=== PATIENT | male | born 1965 | race Caucasian/White ===

== ENCOUNTER 2020-01-23 17:36 | Emergency (ER) | payer BC ==
[~2020-01-23] VITALS: Ht 180.3 cm; Wt 84.1 kg
[2020-01-23] MEDS ORDERED: LIDOcaine 1% W/epiNEPHrine 1:200,000 10ml vial IJ ONE (17:55)
[2020-01-23] MEDS ORDERED: CEPH500C2 PO (19:16)
[2020-01-23] MEDS ORDERED: cephalexin 250 MG/5 ML oral suspension PO STA (19:25)
[2020-01-23] MEDS ORDERED: cephalexin 250mg capsule PO ONE (19:35)
[2020-01-23 19:42] VITALS: BP 135/88
== END 2020-01-23 19:43 | disposition home or self-care (01) ==
LOC: ER 17:36
DX: S68.021A Partial traumatic metacarpophalangeal amputation of right thumb, initial encounter (principal); Z79.2 Long term (current) use of antibiotics; W27.8XXA Contact with other nonpowered hand tool, initial encounter; Y93.89 Activity, other specified; Y92.89 Other specified places as the place of occurrence of the external cause; Y99.8 Other external cause status
CPT/HCPCS: 64450; 73140; 99284

== ENCOUNTER 2021-02-04 08:34 | Inpatient (IN) | payer BC ==
[~2021-02-04] VITALS: Ht 180.3 cm; Wt 190.0 kg
[2021-02-04] MEDS ORDERED: morphine 4 MG/ML inj SYRINge IV ONE (09:15)
[2021-02-04] MEDS ORDERED: ondansetron/PF 4mg/2ml inj IV ONE ×2 (09:15→11:00)
[2021-02-04 09:50] LABS: CLARITY,URINE CLEAR (Clear); COLOR,URINE YELLOW (Yellow); GLUCOSE, URINE NEGATIVE (Neg); KETONES,URINE NEGATIVE (Neg); LEUKOCYTE ESTERASE ,URINE NEGATIVE (Neg); NITRITES, URINE NEGATIVE (Neg); OCCULT BLOOD,URINE NEGATIVE (Neg); PH,URINE 5.5 (4.8-8.0); PROTEIN,URINE NEGATIVE (Neg)
[2021-02-04 09:58] LABS: UA COLLECTION TYPE CLN CATCH MIDSTREAM
[2021-02-04 10:05] LABS: ALANINE AMINOTRANSFERASE 256 U/L (12-78); ALBUMIN 4.3 G/DL (3.4-5.0); ALBUMIN/GLOBULIN RATIO 1.3 (1.1-1.5); ALKALINE PHOSPHATASE 96 IU/L (46-116); ANION GAP 8 (8-16); ASPARTATE AMINO TRANSFERASE 225 U/L (10-37); BILIRUBIN,TOTAL 1.4 MG/DL (0.1-1.0); BLOOD UREA NITROGEN 20 MG/DL (7-18); CALCIUM 8.8 MG/DL (8.5-10.1); CHLORIDE 107 MMOL/L (99-107); CREATININE 1.33 MG/DL (0.60-1.10); GLUCOSE 115 MG/DL (70-104); POTASSIUM 4.3 MMOL/L (3.5-5.1); SODIUM 143 MMOL/L (135-145); TOTAL CARBON DIOXIDE 28.1 MMOL/L (24-32); TOTAL PROTEIN 7.6 G/DL (6.4-8.2); eGFR 56 ML/MIN
[2021-02-04 10:09] LABS: BASOPHILS % (AUTO) 0.2 % (0-1); EOSINOPHILS % (AUTO) 0.2 % (0-6); HEMOGLOBIN 16.4 g/dl (14.0-17.9); LYMPHOCYTES # (AUTO) 1.1 X10'3 (1.1-4.8); LYMPHOCYTES % (AUTO) 6.7 % (21-51); MEAN CORPUSCULAR HEMOGLOBIN 30.7 PG (27.0-31.0); MEAN CORPUSCULAR HGB CONC 33.5 g/dL (33.0-36.5); MEAN CORPUSCULAR VOLUME 91.5 FL (78-98); MEAN PLATELET VOLUME 8.1 FL (7.4-10.4); MONOCYTES # (AUTO) 1.2 X10'3 (0-0.9); MONOCYTES % (AUTO) 7.5 % (2-12); NEUTROPHILS # (AUTO) 14.1 X10'3 (1.8-7.7); NEUTROPHILS % (AUTO) 85.4 % (42-75); PLATELET COUNT 197 X10'3 (140-440); RED BLOOD COUNT 5.35 X10'6 (4.70-6.10); TROPONIN I < 0.04 NG/ML (0.0-0.05); WHITE BLOOD COUNT 16.5 X10'3 (4.5-11.0)
[2021-02-04 10:22] LABS: LIPASE > 30000 U/L (73-393)
[2021-02-04] MEDS ORDERED: normal saline 1000ML IV soln IV ONE (10:30)
[2021-02-04] MEDS ORDERED: piperacillin/tazo 3.375gm/50ml 50 ML IV ONE (10:30)
[2021-02-04 10:57] LABS: CHOL/HDL RATIO 4.1 (0.00-4.99); CHOLESTEROL 217 MG/DL (0-200); HDL CHOLESTEROL 53 MG/DL (35-60); LDL CHOLESTEROL 127 MG/DL (50-100); TRIGLYCERIDES 119 MG/DL (20-135)
[2021-02-04 10:58] LABS: ETHANOL < 0.010 GM/DL (0.0-0.010)
[2021-02-04] MEDS ORDERED: NO HOME MEDS (11:02)
[2021-02-04] MEDS ORDERED: acetaminophen 325mg tablet PO PRN (11:10)
[2021-02-04] MEDS ORDERED: ondansetron/PF 4mg/2ml inj IV PRN (11:10)
[2021-02-04] MEDS ORDERED: mag hydrox/Alum hydrox/simeth 30ml oral suspension PO PRN (11:10)
[2021-02-04] MEDS ORDERED: magnesium hydroxide 30ml (MOM) UD suspension PO PRN (11:10)
--- NOTE | 2021-02-04 11:21 | NUR ---
called pharmacy about ordered Zosyn because it is not showing up assigned for the pt at all in the [facility]. she states she will prepare the med and send it to us in a few minutes.
[2021-02-04] MEDS: normal saline 1000ml 1,000 ML IV SCH ×3 (12:44→23:04)
[2021-02-04 16:19] VITALS: BP 126/82
[2021-02-04] MEDS ORDERED: pantoprazole 40 MG vial IV ONE (17:05)
[2021-02-04 18:00] VITALS: BP 133/82
--- NOTE | 2021-02-04 19:09 | NUR ---
Problems reprioritized. Patient report given, questions answered & plan of care reviewed with Hilda HUSTON.
[2021-02-04] MEDS: morphine 2 MG/ML inj. syringe IV PRN (20:36)
[2021-02-04 22:00] VITALS: BP 129/77
[2021-02-05] MEDS: normal saline 1000ml 1,000 ML IV SCH ×4 (04:29→20:11)
[2021-02-05] MEDS: morphine 2 MG/ML inj. syringe IV PRN ×3 (04:29→20:11)
[2021-02-05 06:00] VITALS: BP 123/71
--- NOTE | 2021-02-05 06:14 | NUR ---
REPORT TO ADRIANE HUSTON
--- NOTE | 2021-02-05 07:02 | NUR ---
Patient in room ORTHO 4024B. I have received report from ROBEL JONES and had the opportunity to ask questions and assume patient care.
[2021-02-05 08:23] LABS: BASOPHILS % (AUTO) 0.1 % (0-1); EOSINOPHILS % (AUTO) 0 % (0-6); HEMATOCRIT 42.3 % (42.0-52.0); HEMOGLOBIN 14.1 g/dl (14.0-17.9); LYMPHOCYTES # (AUTO) 0.8 X10'3 (1.1-4.8); LYMPHOCYTES % (AUTO) 6.4 % (21-51); MEAN CORPUSCULAR HEMOGLOBIN 30.9 PG (27.0-31.0); MEAN CORPUSCULAR HGB CONC 33.5 g/dL (33.0-36.5); MEAN CORPUSCULAR VOLUME 92.4 FL (78-98); MEAN PLATELET VOLUME 8.3 FL (7.4-10.4); MONOCYTES # (AUTO) 0.6 X10'3 (0-0.9); MONOCYTES % (AUTO) 4.7 % (2-12); NEUTROPHILS # (AUTO) 10.9 X10'3 (1.8-7.7); NEUTROPHILS % (AUTO) 88.8 % (42-75); PLATELET COUNT 148 X10'3 (140-440); RED BLOOD COUNT 4.58 X10'6 (4.70-6.10); RED CELL DISTRIBUTION WIDTH 13.4 % (11.5-14.5); WHITE BLOOD COUNT 12.3 X10'3 (4.5-11.0)
[2021-02-05 08:25] LABS: ALANINE AMINOTRANSFERASE 180 U/L (12-78); ALBUMIN 2.9 G/DL (3.4-5.0); ALKALINE PHOSPHATASE 59 IU/L (46-116); ANION GAP 8 (8-16); ASPARTATE AMINO TRANSFERASE 84 U/L (10-37); BILIRUBIN,TOTAL 1.2 MG/DL (0.1-1.0); BLOOD UREA NITROGEN 14 MG/DL (7-18); BUN/CREATININE RATIO 13.1 (5.4-32.0); CALCIUM 7.2 MG/DL (8.5-10.1); CHLORIDE 111 MMOL/L (99-107); CREATININE 1.07 MG/DL (0.60-1.10); GLUCOSE 98 MG/DL (70-104); POTASSIUM 3.9 MMOL/L (3.5-5.1); SODIUM 143 MMOL/L (135-145); TOTAL CARBON DIOXIDE 23.9 MMOL/L (24-32); TOTAL PROTEIN 5.8 G/DL (6.4-8.2); eGFR 71 ML/MIN
[2021-02-05 08:39] LABS: LIPASE 6393 U/L (73-393)
[2021-02-05 10:00] VITALS: BP 127/76
[2021-02-05] MEDS: pantoprazole 40 MG vial IV SCH (10:20)
[2021-02-05] MEDS: enoxaparin 40mg/0.4ml syringe SUBCUT SCH (10:20)
--- NOTE | 2021-02-05 18:44 | NUR ---
Problems reprioritized. Patient report given, questions answered & plan of care reviewed with ROBEL TIWARI.
[2021-02-05 22:00] VITALS: BP_SYST 125; BP_SYST 136; BP_DIAS 72; BP_DIAS 82
[2021-02-06] MEDS: morphine 2 MG/ML inj. syringe IV PRN ×2 (02:42→21:05)
--- NOTE | 2021-02-06 02:43 | NUR ---
ADM 2 MG MORPHINE IVP FOR ABD PAIN 02/25. WHEN I WENT TO SCAN THE MEDICATION AFTER DRAWING UP INTO THE SYRINGE TO ADMINSTER, IT DROPPED ONTO THE FLOOR AND BROKE. ADM THE MEDICATION BY USING ADM BUTTON.
[2021-02-06 06:00] VITALS: BP 130/78
[2021-02-06 06:26] LABS: ALANINE AMINOTRANSFERASE 115 U/L (12-78); ALBUMIN 2.6 G/DL (3.4-5.0); ALBUMIN/GLOBULIN RATIO 0.8 (1.1-1.5); ALKALINE PHOSPHATASE 53 IU/L (46-116); ANION GAP 7 (8-16); ASPARTATE AMINO TRANSFERASE 37 U/L (10-37); BLOOD UREA NITROGEN 12 MG/DL (7-18); BUN/CREATININE RATIO 11.5 (5.4-32.0); CALCIUM 7.5 MG/DL (8.5-10.1); CHLORIDE 110 MMOL/L (99-107); CREATININE 1.04 MG/DL (0.60-1.10); GLUCOSE 91 MG/DL (70-104); LIPASE 1327 U/L (73-393); POTASSIUM 4.3 MMOL/L (3.5-5.1); SODIUM 143 MMOL/L (135-145); TOTAL CARBON DIOXIDE 26.4 MMOL/L (24-32); TOTAL PROTEIN 5.8 G/DL (6.4-8.2); eGFR 74 ML/MIN
[2021-02-06 06:38] LABS: BASOPHILS % (AUTO) 0.1 % (0-1); EOSINOPHILS % (AUTO) 0 % (0-6); HEMATOCRIT 39.5 % (42.0-52.0); HEMOGLOBIN 13.5 g/dl (14.0-17.9); MEAN CORPUSCULAR HEMOGLOBIN 31.5 PG (27.0-31.0); MEAN CORPUSCULAR HGB CONC 34.3 g/dL (33.0-36.5); MEAN CORPUSCULAR VOLUME 91.8 FL (78-98); MEAN PLATELET VOLUME 8.6 FL (7.4-10.4); MONOCYTES # (AUTO) 0.7 X10'3 (0-0.9); MONOCYTES % (AUTO) 5.9 % (2-12); NEUTROPHILS # (AUTO) 10.9 X10'3 (1.8-7.7); PLATELET COUNT 143 X10'3 (140-440); RED CELL DISTRIBUTION WIDTH 13.5 % (11.5-14.5); WHITE BLOOD COUNT 12.6 X10'3 (4.5-11.0)
--- NOTE | 2021-02-06 06:42 | NUR ---
Problems reprioritized. Patient report given, questions answered & plan of care reviewed with ROBEL FORREST.
--- NOTE | 2021-02-06 06:48 | NUR ---
Patient in room ORTHO 4024B. I have received report from ROBEL TIWARI and had the opportunity to ask questions and assume patient care.
[2021-02-06] MEDS: pantoprazole 40 MG vial IV SCH (07:05)
[2021-02-06] MEDS: enoxaparin 40mg/0.4ml syringe SUBCUT SCH (07:05)
[2021-02-06] MEDS: normal saline 1000ml 1,000 ML IV SCH ×5 (07:13→19:21)
[2021-02-06 10:00] VITALS: BP 146/84
[2021-02-06 18:00] VITALS: BP 141/84
--- NOTE | 2021-02-06 18:31 | NUR ---
Problems reprioritized. Patient report given, questions answered & plan of care reviewed with ROBEL TIWARI.
[2021-02-06 22:00] VITALS: BP 115/76
--- NOTE | 2021-02-06 22:00 | NUR ---
NO SURGERY IN THE MORNING AND NO NEED TO PREP FOR NOW. IF PT IS BETTER, MIGHT GO IN PM FOR THE DAY AFTER.
[2021-02-07] MEDS: normal saline 1000ml 1,000 ML IV SCH ×5 (00:05→20:51)
[2021-02-07 06:00] VITALS: BP 154/78
--- NOTE | 2021-02-07 06:37 | NUR ---
Problems reprioritized. Patient report given, questions answered & plan of care reviewed with ROBEL SCHNEIDER.
[2021-02-07] MEDS: enoxaparin 40mg/0.4ml syringe SUBCUT SCH (06:48)
[2021-02-07 07:10] LABS: BASOPHILS % (AUTO) 0.1 % (0-1); EOSINOPHILS % (AUTO) 0 % (0-6); HEMATOCRIT 39.5 % (42.0-52.0); HEMOGLOBIN 13.4 g/dl (14.0-17.9); LYMPHOCYTES # (AUTO) 0.8 X10'3 (1.1-4.8); LYMPHOCYTES % (AUTO) 6.2 % (21-51); MEAN CORPUSCULAR HEMOGLOBIN 30.9 PG (27.0-31.0); MEAN CORPUSCULAR HGB CONC 33.8 g/dL (33.0-36.5); MEAN CORPUSCULAR VOLUME 91.3 FL (78-98); MEAN PLATELET VOLUME 8.9 FL (7.4-10.4); MONOCYTES # (AUTO) 1.2 X10'3 (0-0.9); MONOCYTES % (AUTO) 8.9 % (2-12); NEUTROPHILS # (AUTO) 11.2 X10'3 (1.8-7.7); NEUTROPHILS % (AUTO) 84.8 % (42-75); PLATELET COUNT 164 X10'3 (140-440); RED BLOOD COUNT 4.33 X10'6 (4.70-6.10); RED CELL DISTRIBUTION WIDTH 13.1 % (11.5-14.5); WHITE BLOOD COUNT 13.2 X10'3 (4.5-11.0)
[2021-02-07 07:30] LABS: ALANINE AMINOTRANSFERASE 82 U/L (12-78); ALBUMIN 2.8 G/DL (3.4-5.0); ALBUMIN/GLOBULIN RATIO 0.8 (1.1-1.5); ALKALINE PHOSPHATASE 55 IU/L (46-116); ANION GAP 14 (8-16); ASPARTATE AMINO TRANSFERASE 23 U/L (10-37); BILIRUBIN,TOTAL 1.1 MG/DL (0.1-1.0); BLOOD UREA NITROGEN 14 MG/DL (7-18); BUN/CREATININE RATIO 13.1 (5.4-32.0); CALCIUM 7.8 MG/DL (8.5-10.1); CHLORIDE 106 MMOL/L (99-107); CREATININE 1.07 MG/DL (0.60-1.10); GLUCOSE 123 MG/DL (70-104); LIPASE 225 U/L (73-393); SODIUM 143 MMOL/L (135-145); TOTAL PROTEIN 6.5 G/DL (6.4-8.2); eGFR 71 ML/MIN
[2021-02-07] MEDS ORDERED: potassium Cl 40MEQ/1/2NS 520ml 520 ML IV PRN (07:40)
[2021-02-07] MEDS ORDERED: magnesium 2GM in 50ml NS 50 ML IV PRN (07:40)
[2021-02-07] MEDS ORDERED: potassium Cl 20 mEq SR tablet PO PRN (07:40)
[2021-02-07] MEDS ORDERED: magnesium Cl slow-release 64mg tablet PO PRN (07:40)
[2021-02-07] MEDS ORDERED: magnesium 4gm in 100ml NS 100 ML IV PRN (07:40)
[2021-02-07] MEDS: K and/or MAG REPLACEMENT MC SCH ×2 (08:00→21:03)
[2021-02-07 08:24] LABS: MAGNESIUM 2.2 MG/DL (1.5-2.4)
[2021-02-07] MEDS: potassium Cl 20 mEq SR tablet PO PRN ×2 (09:32→16:23)
[2021-02-07 10:15] VITALS: BP 132/75
--- NOTE | 2021-02-07 11:22 | NUR ---
New IV placed by ultrasound, patient was not able to get am protonix or fluids, will give now.
[2021-02-07] MEDS: pantoprazole 40 MG vial IV SCH (11:26)
--- NOTE | 2021-02-07 15:47 | NUR ---
Patient going for MRCP, will take off tele box while gone.
--- NOTE | 2021-02-07 17:13 | NUR ---
urine output somewhat decreased, monitoring, not retaining only 12ml in bladder earlier. Slightly more than 400ml out so far on day shift.
[2021-02-07 18:00] VITALS: BP 152/87
--- NOTE | 2021-02-07 18:26 | NUR ---
Report given to Becky HUSTON. All questions answered. Call out to Dr Cochran who was in surgery to ask about plan for potential surgery. NOC Rn will follow up. Pt up walking at times. No current pain, some complaints of bloating and acidic taste with burping.
[2021-02-07 22:00] VITALS: BP 158/91
--- NOTE | 2021-02-07 22:30 | NUR ---
talked to Dr. Cochran. he stated that patient is able to have full liquids AAT tonight, Clear liquids tomorrow breakfast and dr. hernadez will evaluate for surgery tomorrow afternoon. "MRCP was clear". notified patient of plan except for MRCP results - pt verbalized understanding. continues to be frustrated with process and slowness of progression. education on pancreatitis given. full liquid snacks given as well. pt tolerated well.
--- NOTE | 2021-02-07 23:11 | NUR ---
notified pt that he doesn't need further potassium replacement tonight. pt verbalized understanding. states that the food has settled well. pt also states that he talked with his and he does NOT want surgery at this time. willing to stay until MD discharges in am, but does not want surgical intervention at this time. will notify day RN to let the hospitalist assigned to his case in am aware.
[2021-02-08] MEDS: normal saline 1000ml 1,000 ML IV SCH ×2 (01:52→05:10)
--- NOTE | 2021-02-08 05:36 | NUR ---
pt refused IV fluid this am. SL IV. pt waiting to be discharged home. no pain in abdomen. pt feels fine after eating full liquids last noc. awaiting lab results.
[2021-02-08 06:00] VITALS: BP 131/80
[2021-02-08 06:01] LABS: BASOPHILS % (AUTO) 0.2 % (0-1); EOSINOPHILS % (AUTO) 0.1 % (0-6); HEMATOCRIT 37.6 % (42.0-52.0); LYMPHOCYTES # (AUTO) 0.8 X10'3 (1.1-4.8); LYMPHOCYTES % (AUTO) 6.7 % (21-51); MEAN CORPUSCULAR HEMOGLOBIN 31.1 PG (27.0-31.0); MEAN CORPUSCULAR HGB CONC 34.4 g/dL (33.0-36.5); MEAN CORPUSCULAR VOLUME 90.3 FL (78-98); MONOCYTES # (AUTO) 1.1 X10'3 (0-0.9); MONOCYTES % (AUTO) 10.1 % (2-12); NEUTROPHILS # (AUTO) 9.4 X10'3 (1.8-7.7); NEUTROPHILS % (AUTO) 82.9 % (42-75); PLATELET COUNT 178 X10'3 (140-440); RED BLOOD COUNT 4.17 X10'6 (4.70-6.10); RED CELL DISTRIBUTION WIDTH 13.2 % (11.5-14.5); WHITE BLOOD COUNT 11.4 X10'3 (4.5-11.0)
[2021-02-08 06:28] LABS: ALANINE AMINOTRANSFERASE 66 U/L (12-78); ALBUMIN 2.7 G/DL (3.4-5.0); ALBUMIN/GLOBULIN RATIO 0.8 (1.1-1.5); ALKALINE PHOSPHATASE 53 IU/L (46-116); ANION GAP 9 (8-16); ASPARTATE AMINO TRANSFERASE 22 U/L (10-37); BILIRUBIN,TOTAL 0.9 MG/DL (0.1-1.0); BLOOD UREA NITROGEN 15 MG/DL (7-18); BUN/CREATININE RATIO 16.9 (5.4-32.0); CALCIUM 7.9 MG/DL (8.5-10.1); CHLORIDE 109 MMOL/L (99-107); CREATININE 0.89 MG/DL (0.60-1.10); GLUCOSE 114 MG/DL (70-104); LIPASE 98 U/L (73-393); POTASSIUM 3.5 MMOL/L (3.5-5.1); SODIUM 143 MMOL/L (135-145); TOTAL CARBON DIOXIDE 25.3 MMOL/L (24-32); TOTAL PROTEIN 6.3 G/DL (6.4-8.2); eGFR 88 ML/MIN
--- NOTE | 2021-02-08 06:30 | NUR ---
Patient in room ORTHO 4024B. I have received report from ROBEL Aggarwal and had the opportunity to ask questions and assume patient care.
[2021-02-08] MEDS: K and/or MAG REPLACEMENT MC SCH (07:30)
[2021-02-08] MEDS ORDERED: pantoprazole 40mg Tablet.DR PO SCH (07:30)
[2021-02-08] MEDS: enoxaparin 40mg/0.4ml syringe SUBCUT SCH (07:50)
--- NOTE | 2021-02-08 08:24 | NUR ---
Page Sent PAGER ID: [phone] MESSAGE: SONAL [id number]-RE: ALEXANDRA GALVIN [id number]...PT DOES NOT WANT SX, WANTS TO DC...DR ZARAGOZA NOTIFIED PT STATES, NO ABD PAIN, TOLERATING FULL LIQUID DIET. DOES NOT WANT SX, WANTS TO GO HOME. IF PT HAS ANOTHER "ATTACK" THEN HE WILL DO SURGERY.
[2021-02-08] MEDS ORDERED: OMEP40CA21 PO (09:20)
[2021-02-08 10:00] VITALS: BP 137/81
--- NOTE | 2021-02-08 10:45 | NUR ---
DC INSTRUCTIONS GIVEN, QUESTIONS ANSWERED. IV REMOVED, CANULA INTACT, NO COMPLICATIONS. TELE MONITOR REMOVED. PT DRESSED SELF. PT WALKED DOWN TO PRIVATE VEHICLE IN STABLE CONDITION. WILL F/U OUT PT.
== END 2021-02-08 10:25 | disposition home or self-care (01) | DRG 438 ==
LOC: ER 08:34 → ED HOLD 11:10 → ORTHO 4S 16:00
PROVIDERS: ADMIT Family Medicine; ATTEND Family Medicine
DX: K85.10 Biliary acute pancreatitis without necrosis or infection (principal); N17.0 Acute kidney failure with tubular necrosis; E78.5 Hyperlipidemia, unspecified; K80.20 Calculus of gallbladder without cholecystitis without obstruction; R74.01 Elevation of levels of liver transaminase levels; Z20.822 Contact with and (suspected) exposure to COVID-19; E87.6 Hypokalemia; F17.220 Nicotine dependence, chewing tobacco, uncomplicated
CPT/HCPCS: 36415; 74176; 74181; 80053; 80061; 80320; 81003; 83605; 83690; 83735; 84132; 84145; 84484; 85025; 85610; 87040; 87081; 87635; 93005; 96361; 96375; 96376; 99285; C9113; G0378; J1650; J2270; J2405; J2543; J7030

== ENCOUNTER 2021-02-15 22:25 | Emergency (ER) | payer BC ==
[~2021-02-15] VITALS: Ht 180.3 cm; Wt 84.5 kg
[~2021-02-15 22:25] MED LIST: OMEP40CA21 PO
[2021-02-16 00:26] LABS: BASOPHILS # (AUTO) 0.1 X10'3 (0-0.2); BASOPHILS % (AUTO) 0.4 % (0-1); EOSINOPHILS % (AUTO) 0.2 % (0-6); HEMATOCRIT 39.9 % (42.0-52.0); HEMOGLOBIN 13.6 g/dl (14.0-17.9); LYMPHOCYTES # (AUTO) 1.8 X10'3 (1.1-4.8); LYMPHOCYTES % (AUTO) 10.9 % (21-51); MEAN CORPUSCULAR HEMOGLOBIN 30.2 PG (27.0-31.0); MEAN CORPUSCULAR VOLUME 88.9 FL (78-98); MONOCYTES # (AUTO) 1.7 X10'3 (0-0.9); MONOCYTES % (AUTO) 10.7 % (2-12); NEUTROPHILS # (AUTO) 12.5 X10'3 (1.8-7.7); NEUTROPHILS % (AUTO) 77.8 % (42-75); PLATELET COUNT 335 X10'3 (140-440); RED BLOOD COUNT 4.49 X10'6 (4.70-6.10); RED CELL DISTRIBUTION WIDTH 13.5 % (11.5-14.5); WHITE BLOOD COUNT 16.1 X10'3 (4.5-11.0)
[2021-02-16 00:28] LABS: CLARITY,URINE CLEAR (Clear); GLUCOSE, URINE NEGATIVE (Neg); KETONES,URINE NEGATIVE (Neg); LEUKOCYTE ESTERASE ,URINE NEGATIVE (Neg); NITRITES, URINE NEGATIVE (Neg); OCCULT BLOOD,URINE NEGATIVE (Neg); PH,URINE 6.5 (4.8-8.0); PROTEIN,URINE NEGATIVE (Neg)
[2021-02-16 00:29] LABS: COLOR,URINE DARK YELLOW (Yellow); UA COLLECTION TYPE NON-SPECIFIED
[2021-02-16 00:41] LABS: ALANINE AMINOTRANSFERASE 40 U/L (12-78); ALBUMIN 2.6 G/DL (3.4-5.0); ALBUMIN/GLOBULIN RATIO 0.6 (1.1-1.5); ALKALINE PHOSPHATASE 88 IU/L (46-116); ANION GAP 7 (8-16); ASPARTATE AMINO TRANSFERASE 27 U/L (10-37); BILIRUBIN,TOTAL 1.2 MG/DL (0.1-1.0); BLOOD UREA NITROGEN 12 MG/DL (7-18); BUN/CREATININE RATIO 11.3 (5.4-32.0); CALCIUM 8.2 MG/DL (8.5-10.1); CHLORIDE 101 MMOL/L (99-107); CREATININE 1.06 MG/DL (0.60-1.10); GLUCOSE 111 MG/DL (70-104); LIPASE 236 U/L (73-393); POTASSIUM 3.6 MMOL/L (3.5-5.1); SODIUM 137 MMOL/L (135-145); TOTAL CARBON DIOXIDE 29.4 MMOL/L (24-32); TOTAL PROTEIN 6.8 G/DL (6.4-8.2); eGFR 72 ML/MIN
[2021-02-16] MEDS ORDERED: ketorolac trometh. 30mg/ml inj. IV ONE (01:15)
[2021-02-16 01:26] VITALS: BP 119/75
== END 2021-02-16 01:42 | disposition home or self-care (01) ==
LOC: ER 22:25
DX: K80.20 Calculus of gallbladder without cholecystitis without obstruction (principal); R10.84 Generalized abdominal pain; R10.13 Epigastric pain; Z79.899 Other long term (current) drug therapy
CPT/HCPCS: 36415; 80053; 81003; 83690; 85025; 96374; 99283; J1885

== ENCOUNTER 2021-03-01 07:56 | Inpatient (IN) | payer BC ==
[2021-02-24 11:18] LABS: BASOPHILS # (AUTO) 0.1 X10'3 (0-0.2); BASOPHILS % (AUTO) 0.5 % (0-1); EOSINOPHILS % (AUTO) 0.2 % (0-6); LYMPHOCYTES % (AUTO) 12.8 % (21-51); MEAN CORPUSCULAR HEMOGLOBIN 29.9 PG (27.0-31.0); MEAN CORPUSCULAR HGB CONC 33.1 g/dL (33.0-36.5); MEAN CORPUSCULAR VOLUME 90.1 FL (78-98); MEAN PLATELET VOLUME 7.3 FL (7.4-10.4); MONOCYTES # (AUTO) 1.1 X10'3 (0-0.9); MONOCYTES % (AUTO) 6.8 % (2-12); NEUTROPHILS # (AUTO) 12.6 X10'3 (1.8-7.7); NEUTROPHILS % (AUTO) 79.7 % (42-75); PRE OP HEMOGLOBIN 15.9 g/dL (14.0-17.9); PRE OP PLATELET COUNT 476 X10'3 (140-440); RED BLOOD COUNT 5.33 X10'6 (4.70-6.10); RED CELL DISTRIBUTION WIDTH 13.4 % (11.5-14.5)
[2021-02-24 11:22] LABS: CLARITY,URINE CLEAR (Clear); COLOR,URINE YELLOW (Yellow); GLUCOSE, URINE NEGATIVE (Neg); KETONES,URINE NEGATIVE (Neg); LEUKOCYTE ESTERASE ,URINE NEGATIVE (Neg); NITRITES, URINE NEGATIVE (Neg); OCCULT BLOOD,URINE NEGATIVE (Neg); PROTEIN,URINE NEGATIVE (Neg)
[2021-02-24 11:24] LABS: UA COLLECTION TYPE CLN CATCH MIDSTREAM
[2021-02-24 11:36] LABS: ALBUMIN 3.5 G/DL (3.4-5.0); ALBUMIN/GLOBULIN RATIO 0.7 (1.1-1.5); ALKALINE PHOSPHATASE 101 IU/L (46-116); BLOOD UREA NITROGEN 14 MG/DL (7-18); BUN/CREATININE RATIO 13.3 (5.4-32.0); CALCIUM 9.3 MG/DL (8.5-10.1); CHLORIDE 103 MMOL/L (99-107); CREATININE 1.05 MG/DL (0.60-1.10); PRE OP ALT 29 U/L (30-65); PRE OP ANION GAP 9 (8-16); PRE OP AST 17 U/L (10-37); PRE OP BILIRUB, TOTAL 0.7 MG/DL (0.0-1.0); PRE OP GLUCOSE 105 MG/DL (70-104); PRE OP POTASSIUM 4.9 MMOL/L (3.4-5.1); PRE OP SODIUM 140 MMOL/L (135-145); TOTAL CARBON DIOXIDE 28.4 MMOL/L (24-32); TOTAL PROTEIN 8.6 G/DL (6.4-8.2); eGFR 73 ML/MIN
[2021-03-01] VITALS (18 sets, daily range): BP systolic 102–136; BP diastolic 71–92
[~2021-03-01] VITALS: Ht 180.3 cm; Wt 79.8 kg
[~2021-03-01 07:56] MED LIST changes: +NO HOME MEDS; -OMEP40CA21 PO; +ceFOXitin 2GM-NS 100mL ADDvant 100 ML IV ONE; +famotidine 20mg tablet PO ONE
[2021-03-01] MEDS: ringers solution, lacted 1,000 ML IV SCH ×2 (08:47→15:18)
[2021-03-01] MEDS ORDERED: glycopyrrolate 0.2mg/ml inj ONE (11:16)
[2021-03-01] MEDS ORDERED: sevoflurane 250ml liquid IH ONE (11:16)
[2021-03-01] MEDS ORDERED: neostigmine methylsulfate 1 MG/ML 10ml vial ONE (11:16)
[2021-03-01] MEDS ORDERED: proCHLORperazine 10 MG/2 ml inj IV PRN (11:20)
[2021-03-01] MEDS ORDERED: ondansetron/PF 4mg/2ml inj IV PRN (11:20)
[2021-03-01] MEDS ORDERED: acetaminophen 1,000mg/100ml IV 100 ML IV PRN (11:20)
[2021-03-01] MEDS ORDERED: ringers solution, lacted 1,000 ML IV SCH (11:20)
[2021-03-01] MEDS ORDERED: hydrALAZINE 20mg/ml inj. IV PRN (11:20)
[2021-03-01] MEDS ORDERED: meperidine/PF 25mg/ml syringe IV PRN ×3 (11:20)
[2021-03-01] MEDS ORDERED: labetalol 20mg/4ml (5mg/ml) syringe IV PRN (11:20)
[2021-03-01] MEDS ORDERED: ketorolac trometh. 30mg/ml inj. IV ONE (11:20)
[2021-03-01] MEDS ORDERED: morphine 4 MG/ML inj SYRINge IV PRN (11:20)
[2021-03-01] MEDS ORDERED: morphine 2 MG/ML inj. syringe IV PRN (11:20)
[2021-03-01] MEDS ORDERED: fentaNYL /PF 50mcg/ml 5ml ampule ONE ×2 (11:23→11:32)
[2021-03-01] MEDS ORDERED: midazolam 1 mg/ML 2ml injection ONE (11:23)
[2021-03-01] MEDS ORDERED: ondansetron/PF 4mg/2ml inj ONE (11:43)
[2021-03-01] MEDS ORDERED: propofol inj 20 ML IV ONE (11:43)
[2021-03-01] MEDS ORDERED: dexamethasone sod phosphate 4mg/ml inj. ONE (11:43)
[2021-03-01] MEDS ORDERED: LIDOcaine 2% (20mg/ml) 5ml vial ONE (11:43)
[2021-03-01] MEDS ORDERED: rocuronium 10mg/ml inj IV ONE (11:43)
[2021-03-01] MEDS ORDERED: morphine 10mg/ml inj. ONE (12:46)
[2021-03-01] MEDS ORDERED: HYDROmorph./NS 0.2 mg/ml CADD 100 ML IV SCH (12:50)
[2021-03-01] MEDS ORDERED: HYDROcodone/acetaminophen 5mg/325mg tablet PO PRN (12:50)
[2021-03-01] MEDS ORDERED: naloxone 0.4 mg/ml inj IV PRN (12:50)
[2021-03-01] MEDS ORDERED: HYDROcodone/acetaminophen 10/325mg tab PO PRN (12:50)
[2021-03-01] MEDS ORDERED: CADD PCA waste documentation MC PRN (12:50)
[2021-03-01] MEDS ORDERED: acetaminophen 1,000mg/100ml IV 100 ML IV ONE (12:52)
--- NOTE | 2021-03-01 13:00 | NUR ---
Received from OR via BED, accompanied by Anesthesiologist KOTA FISHER, report given by Anesthesiologist. PATIENT WAKING UP, NO S/S OF PAIN, V/S WNL, SCD ON, 20G TO RUE, LAP SURGICAL SITES X3 TO ABDOMEN CDI. ARLET DRAIN INTACT AND DRAINING BLOODY DRAINAGE.
[2021-03-01] MEDS ORDERED: BUPIVAcaine/PF 2.5 mg/ml (0.25%) 30ml vial ONE (13:11)
--- NOTE | 2021-03-01 15:00 | NUR ---
PT HAS BEEN QUITE COMFORTABLE, VSS, TAKING PO LIQUIDS, ARLET DRAIN EMPTIED-120CC BLOODY DRAINAGE, LAP SITES DERMABONDED X 3 - CDI, ARLET SITE-INTACT, BULB MAINTAINING GOOD SXN, SCDS ON, PIV 20G LUE-LR RUNNING AT 100ML/HR, INFORMED OF TRANSFER. PATIENT TAKEN TO ROOM 355B WITH ALL BELONGINGS AND HOOKED UP TO MONITORS IN ROOM, BED LOW AND LOCKED, CALL LIGHT IN REACH, AND REPORT GIVEN TO ROBEL ANGULO WHO HAS TAKEN OVER PATIENT CARE.
--- NOTE | 2021-03-01 15:06 | NUR ---
pt arrived to surgical floor via hospital bed. settled in room 355B, call light within reach. post op VS started
--- NOTE | 2021-03-01 15:15 | NUR ---
Pt currently rates pain at 2/10. Dilauded CADD not needed at this time.
--- NOTE | 2021-03-01 18:27 | NUR ---
Patient in room ROYCE 355. I have received report from ROBEL Pineda and had the opportunity to ask questions and assume patient care.
--- NOTE | 2021-03-01 18:31 | NUR ---
Problems reprioritized. Patient report given, questions answered & plan of care reviewed with ROBEL Arango.
[2021-03-01] MEDS: potassium CL 20mEq in D5-1/2NS 1,000 ML IV SCH (19:47)
--- NOTE | 2021-03-01 20:05 | NUR ---
Patient refused CADD does not want pain medication. Patient states pain is a 2\10.
[2021-03-01] MEDS: docusate sod 100mg capsule PO SCH (20:09)
[2021-03-02] VITALS: BP 122/85
[2021-03-02] MEDS: potassium CL 20mEq in D5-1/2NS 1,000 ML IV SCH (03:18)
[2021-03-02 07:00] VITALS: BP 130/84
--- NOTE | 2021-03-02 07:14 | NUR ---
PAGER ID: [phone] MESSAGE: Hernesto Leon 358 Good morning! Pt. had rapid last night. unresponsive while walking. Orthostatics? can we DC sitter? No poop since the .? Suppository? Not drinking/ eating. Fluids? I ordered diet consult. Lory [id number] Addendum: 03/02/21 at 0715 by Lory Monae RN Incorrect pt. Please disregard note.
[2021-03-02 11:00] VITALS: BP 131/92
[2021-03-02] MEDS: docusate sod 100mg capsule PO SCH (11:04)
--- NOTE | 2021-03-02 14:45 | NUR ---
DISCHARGE NOTE. IV DC'd by resource while primary RN on lunch. Pt. escorted downstairs with belongings to discharge home.
--- NOTE | 2021-03-02 14:45 | NUR ---
DISCHARGE paperwork reviewed with pt. Written education provided on lap. boom. Discussed infection control techniques, post-op recommendations, s/sx infection, diet, exercise, warning signs, and when to return to ER. Discussed discharge medication that Ronak gallo ordered and possible ASE. Pt. knows to f/u with Zhengmadi and has his contact information. Belongings gathered for pt. to take home. Pt. had the opportunity to ask questions however he had none and was eager to return home. He has called his for a ride home.
== END 2021-03-02 14:50 | disposition home or self-care (01) | DRG 417 ==
LOC: PAS 07:56 → SUR 3N 12:50
PROVIDERS: ADMIT Surgery; ATTEND Surgery
PROC: 0FT44ZZ Resection of Gallbladder, Percutaneous Endoscopic Approach (ICD-10-PCS; principal; 2021-03-01 11:16)
DX: K80.12 Calculus of gallbladder with acute and chronic cholecystitis without obstruction (principal); K85.10 Biliary acute pancreatitis without necrosis or infection; F17.220 Nicotine dependence, chewing tobacco, uncomplicated
CPT/HCPCS: Z7506; Z7508; 36415; 80053; 81003; 82948; 85025; A4215; A4618; A7000; G0378; J0131; J0694; J1100; J2001; J2250; J2270; J2405; J2704; J2710; J3010; J3480; J3490; J7120; U0003; U0005

== ENCOUNTER 2021-04-02 10:31 | Inpatient (IN) | payer BC ==
[~2021-04-02] VITALS: Ht 180.3 cm; Wt 75.0 kg
[~2021-04-02 10:31] MED LIST changes: -ceFOXitin 2GM-NS 100mL ADDvant 100 ML IV ONE; -famotidine 20mg tablet PO ONE
[2021-04-02 13:40] LABS: ALANINE AMINOTRANSFERASE 15 U/L (12-78); ALBUMIN 2.8 G/DL (3.4-5.0); ALBUMIN/GLOBULIN RATIO 0.5 (1.1-1.5); ALKALINE PHOSPHATASE 99 IU/L (46-116); ANION GAP 10 (8-16); ASPARTATE AMINO TRANSFERASE 16 U/L (10-37); BLOOD UREA NITROGEN 11 MG/DL (7-18); BUN/CREATININE RATIO 9.7 (5.4-32.0); CHLORIDE 97 MMOL/L (99-107); CREATININE 1.13 MG/DL (0.60-1.10); GLUCOSE 119 MG/DL (70-104); POTASSIUM 4.1 MMOL/L (3.5-5.1); SODIUM 134 MMOL/L (135-145); TOTAL CARBON DIOXIDE 27.3 MMOL/L (24-32); TOTAL PROTEIN 8.2 G/DL (6.4-8.2); eGFR 67 ML/MIN
[2021-04-02] MEDS ORDERED: iohexol 350MG/ML 100ml bottle IV ONE (14:08)
[2021-04-02] MEDS ORDERED: piperacillin/tazo 3.375gm/50ml 50 ML IV ONE (16:10)
[2021-04-02] MEDS ORDERED: vancomycin/NS 1 GM ADD-VANTAGE 250 ML IV ONE (16:10)
[2021-04-02] MEDS ORDERED: normal saline 1000ML IV soln IVB ONE (16:15)
[2021-04-02] MEDS ORDERED: iohexol 300mg/ml 100ml inj. ONE (16:27)
[2021-04-02 16:31] LABS: EOSINOPHILS % (AUTO) 0.1 % (0-6); HEMOGLOBIN 12.5 g/dl (14.0-17.9); LYMPHOCYTES # (AUTO) 1.2 X10'3 (1.1-4.8)
[2021-04-02 16:32] LABS: BASOPHILS % (AUTO) 0.3 % (0-1); HEMATOCRIT 37.6 % (42.0-52.0); MEAN CORPUSCULAR HGB CONC 33.3 g/dL (33.0-36.5); MEAN CORPUSCULAR VOLUME 86.9 FL (78-98); MEAN PLATELET VOLUME 7.4 FL (7.4-10.4); MONOCYTES % (AUTO) 13.6 % (2-12); NEUTROPHILS # (AUTO) 11.4 X10'3 (1.8-7.7); PLATELET COUNT 258 X10'3 (140-440); RED BLOOD COUNT 4.32 X10'6 (4.70-6.10); RED CELL DISTRIBUTION WIDTH 13.5 % (11.5-14.5); WHITE BLOOD COUNT 14.7 X10'3 (4.5-11.0)
[2021-04-02 17:31] LABS: PLATELET ESTIMATE NORMAL; TOTAL CELLS COUNTED 100
[2021-04-02] MEDS ORDERED: ondansetron/PF 4mg/2ml inj IV PRN (18:20)
[2021-04-02] MEDS: normal saline 1000ml 1,000 ML IV SCH (18:20)
[2021-04-02] MEDS ORDERED: mag hydrox/Alum hydrox/simeth 30ml oral suspension PO PRN (18:20)
[2021-04-02] MEDS ORDERED: potassium Cl 20 mEq SR tablet PO PRN ×2 (18:20)
[2021-04-02] MEDS ORDERED: magnesium 2GM in 50ml NS 50 ML IV PRN (18:20)
[2021-04-02] MEDS ORDERED: potassium Cl 40MEQ/1/2NS 520ml 520 ML IV PRN ×2 (18:20)
[2021-04-02] MEDS ORDERED: magnesium 4gm in 100ml NS 100 ML IV PRN (18:20)
[2021-04-02] MEDS ORDERED: HYDROmorphone 1 mg/ml syringe IV PRN (18:45)
[2021-04-02] MEDS ORDERED: HYDROmorphone inj. 0.5 MG/0.5 ML DISP.SYRIN IV PRN (18:45)
[2021-04-02] MEDS: K and/or MAG REPLACEMENT MC SCH (20:00)
[2021-04-02] MEDS: docusate sod 100mg capsule PO SCH (20:00)
--- NOTE | 2021-04-02 20:32 | NUR ---
pt is going to OR tomorrow, time undetermined for drainage of abdominal abcess. Pt to be NPO after midnight.
[2021-04-03] VITALS (18 sets, daily range): BP systolic 100–113; BP diastolic 60–71
[2021-04-03] MEDS: piperacillin/tazo 4.5gm/100ml 100 ML IV SCH ×4 (03:00→23:52)
[2021-04-03] MEDS: normal saline 1000ml 1,000 ML IV SCH ×4 (04:20→22:47)
--- NOTE | 2021-04-03 07:27 | NUR ---
Report attempted, ROBEL Gordillo to call back.
--- NOTE | 2021-04-03 07:35 | NUR ---
called ED for report, I was told Mariah was the nurse. waited for a while and they hung up. Will call back in 10-15 min.
--- NOTE | 2021-04-03 07:45 | NUR ---
Report attempted, RN to call back in "5 min"
[2021-04-03 07:49] LABS: BASOPHILS % (AUTO) 0.3 % (0-1); EOSINOPHILS % (AUTO) 0.1 % (0-6); HEMATOCRIT 34.4 % (42.0-52.0); HEMOGLOBIN 11.1 g/dl (14.0-17.9); LYMPHOCYTES # (AUTO) 1.4 X10'3 (1.1-4.8); LYMPHOCYTES % (AUTO) 11.4 % (21-51); MEAN CORPUSCULAR HEMOGLOBIN 28.1 PG (27.0-31.0); MEAN CORPUSCULAR HGB CONC 32.2 g/dL (33.0-36.5); MEAN CORPUSCULAR VOLUME 87.4 FL (78-98); MEAN PLATELET VOLUME 7.2 FL (7.4-10.4); MONOCYTES # (AUTO) 2.2 X10'3 (0-0.9); NEUTROPHILS # (AUTO) 8.5 X10'3 (1.8-7.7); NEUTROPHILS % (AUTO) 70.2 % (42-75); PLATELET COUNT 255 X10'3 (140-440); RED BLOOD COUNT 3.94 X10'6 (4.70-6.10); RED CELL DISTRIBUTION WIDTH 13.7 % (11.5-14.5); WHITE BLOOD COUNT 12.1 X10'3 (4.5-11.0)
[2021-04-03 07:59] LABS: ALANINE AMINOTRANSFERASE 13 U/L (12-78); ALBUMIN/GLOBULIN RATIO 0.5 (1.1-1.5); ALKALINE PHOSPHATASE 74 IU/L (46-116); ANION GAP 10 (8-16); ASPARTATE AMINO TRANSFERASE 14 U/L (10-37); BILIRUBIN,TOTAL 0.8 MG/DL (0.1-1.0); BLOOD UREA NITROGEN 15 MG/DL (7-18); BUN/CREATININE RATIO 15.3 (5.4-32.0); CALCIUM 7.9 MG/DL (8.5-10.1); CHLORIDE 102 MMOL/L (99-107); CREATININE 0.98 MG/DL (0.60-1.10); GLUCOSE 95 MG/DL (70-104); POTASSIUM 3.8 MMOL/L (3.5-5.1); SODIUM 137 MMOL/L (135-145); TOTAL CARBON DIOXIDE 24.8 MMOL/L (24-32); TOTAL PROTEIN 6.3 G/DL (6.4-8.2); eGFR 79 ML/MIN
[2021-04-03] MEDS: K and/or MAG REPLACEMENT MC SCH ×2 (08:00→20:00)
[2021-04-03] MEDS: docusate sod 100mg capsule PO SCH ×2 (09:14→19:54)
[2021-04-03 09:28] LABS: PLATELET ESTIMATE NORMAL; TOTAL CELLS COUNTED 100
[2021-04-03] MEDS ORDERED: fentaNYL/PF 50MCG/1 ML 2ML syringe ONE ×2 (12:13→12:57)
[2021-04-03] MEDS ORDERED: midazolam 1 mg/ML 2ml injection ONE ×2 (12:13→12:57)
[2021-04-03] MEDS ORDERED: iohexol 300mg/ml 100ml inj. ONE (12:26)
--- NOTE | 2021-04-03 16:25 | NUR ---
PAGER ID: [phone] MESSAGE: Sampson Sal#[phone] - Can I please feed pt?? Thank you. Alla [phone]
--- NOTE | 2021-04-03 18:15 | NUR ---
Patient in room ROYCE 345. I have received report from ROBEL Gold and had the opportunity to ask questions and assume patient care.
[2021-04-03] MEDS: acetaminophen 325mg tablet PO PRN (22:50)
--- NOTE | 2021-04-04 02:24 | NUR ---
Pt bed drenched with sweat, broke fever, now 97.8 orally. Changed linens and gown. Patient refused bath or wipes.
[2021-04-04] MEDS: normal saline 1000ml 1,000 ML IV SCH ×3 (05:35→14:52)
[2021-04-04 05:56] LABS: BASOPHILS % (AUTO) 0.1 % (0-1); EOSINOPHILS # (AUTO) 0.1 X10'3 (0-0.9); EOSINOPHILS % (AUTO) 0.7 % (0-6); HEMATOCRIT 33.2 % (42.0-52.0); LYMPHOCYTES # (AUTO) 1.1 X10'3 (1.1-4.8); LYMPHOCYTES % (AUTO) 12.1 % (21-51); MEAN CORPUSCULAR HGB CONC 33.1 g/dL (33.0-36.5); MEAN CORPUSCULAR VOLUME 87.6 FL (78-98); MEAN PLATELET VOLUME 7.2 FL (7.4-10.4); MONOCYTES # (AUTO) 1.3 X10'3 (0-0.9); MONOCYTES % (AUTO) 13.9 % (2-12); NEUTROPHILS # (AUTO) 6.7 X10'3 (1.8-7.7); NEUTROPHILS % (AUTO) 73.2 % (42-75); PLATELET COUNT 259 X10'3 (140-440); RED BLOOD COUNT 3.79 X10'6 (4.70-6.10); RED CELL DISTRIBUTION WIDTH 13.5 % (11.5-14.5); WHITE BLOOD COUNT 9.1 X10'3 (4.5-11.0)
[2021-04-04 06:18] LABS: ALANINE AMINOTRANSFERASE 16 U/L (12-78); ALBUMIN 1.7 G/DL (3.4-5.0); ALBUMIN/GLOBULIN RATIO 0.4 (1.1-1.5); ALKALINE PHOSPHATASE 62 IU/L (46-116); ANION GAP 7 (8-16); ASPARTATE AMINO TRANSFERASE 28 U/L (10-37); BILIRUBIN,TOTAL 0.6 MG/DL (0.1-1.0); BLOOD UREA NITROGEN 10 MG/DL (7-18); CALCIUM 7.5 MG/DL (8.5-10.1); CHLORIDE 108 MMOL/L (99-107); GLUCOSE 104 MG/DL (70-104); MAGNESIUM 2.1 MG/DL (1.5-2.4); POTASSIUM 3.5 MMOL/L (3.5-5.1); SODIUM 141 MMOL/L (135-145); TOTAL CARBON DIOXIDE 26.2 MMOL/L (24-32); TOTAL PROTEIN 5.7 G/DL (6.4-8.2); eGFR 77 ML/MIN
[2021-04-04 07:00] VITALS: BP 100/65
[2021-04-04] MEDS: docusate sod 100mg capsule PO SCH ×2 (08:00→19:53)
[2021-04-04] MEDS: piperacillin/tazo 4.5gm/100ml 100 ML IV SCH ×2 (08:48→16:41)
[2021-04-04] MEDS: acetaminophen 325mg tablet PO PRN (08:49)
[2021-04-04] MEDS: K and/or MAG REPLACEMENT MC SCH ×2 (08:59→18:13)
[2021-04-04 11:00] VITALS: BP 107/72
[2021-04-04 18:00] VITALS: BP 127/80
--- NOTE | 2021-04-04 18:46 | NUR ---
Patient in room ROYCE 345. I have received report from ROBEL Garcia and had the opportunity to ask questions and assume patient care.
--- NOTE | 2021-04-04 18:53 | NUR ---
Problems reprioritized. Patient report given, questions answered & plan of care reviewed with Conchita HUSTON.
[2021-04-04] MEDS: lactobacillus rhamnosus 10,000 MMU CELLS/CAPSULE PO SCH (19:55)
[2021-04-05] VITALS: BP 108/69
[2021-04-05] MEDS: piperacillin/tazo 4.5gm/100ml 100 ML IV SCH ×4 (00:01→23:01)
[2021-04-05] MEDS: normal saline 1000ml 1,000 ML IV SCH (00:01)
[2021-04-05 06:13] LABS: BASOPHILS % (AUTO) 0.3 % (0-1); EOSINOPHILS # (AUTO) 0.2 X10'3 (0-0.9); EOSINOPHILS % (AUTO) 2.1 % (0-6); HEMATOCRIT 33.8 % (42.0-52.0); LYMPHOCYTES # (AUTO) 1.4 X10'3 (1.1-4.8); LYMPHOCYTES % (AUTO) 17.1 % (21-51); MEAN CORPUSCULAR HEMOGLOBIN 28.7 PG (27.0-31.0); MEAN CORPUSCULAR HGB CONC 32.6 g/dL (33.0-36.5); MEAN CORPUSCULAR VOLUME 88.2 FL (78-98); MEAN PLATELET VOLUME 7.3 FL (7.4-10.4); MONOCYTES # (AUTO) 1.2 X10'3 (0-0.9); NEUTROPHILS # (AUTO) 5.4 X10'3 (1.8-7.7); NEUTROPHILS % (AUTO) 65.5 % (42-75); PLATELET COUNT 245 X10'3 (140-440); RED BLOOD COUNT 3.84 X10'6 (4.70-6.10); RED CELL DISTRIBUTION WIDTH 13.7 % (11.5-14.5); WHITE BLOOD COUNT 8.3 X10'3 (4.5-11.0)
[2021-04-05 06:21] LABS: ALANINE AMINOTRANSFERASE 11 U/L (12-78); ALBUMIN 1.7 G/DL (3.4-5.0); ALBUMIN/GLOBULIN RATIO 0.4 (1.1-1.5); ALKALINE PHOSPHATASE 80 IU/L (46-116); ANION GAP 9 (8-16); ASPARTATE AMINO TRANSFERASE 14 U/L (10-37); BILIRUBIN,TOTAL 0.3 MG/DL (0.1-1.0); BLOOD UREA NITROGEN 6 MG/DL (7-18); BUN/CREATININE RATIO 6.4 (5.4-32.0); CALCIUM 7.9 MG/DL (8.5-10.1); CHLORIDE 111 MMOL/L (99-107); CREATININE 0.94 MG/DL (0.60-1.10); GLUCOSE 103 MG/DL (70-104); POTASSIUM 4.1 MMOL/L (3.5-5.1); SODIUM 146 MMOL/L (135-145); TOTAL CARBON DIOXIDE 25.9 MMOL/L (24-32); TOTAL PROTEIN 5.7 G/DL (6.4-8.2); eGFR 83 ML/MIN
--- NOTE | 2021-04-05 06:31 | NUR ---
Problems reprioritized. Patient report given, questions answered & plan of care reviewed with ROBEL Henley.
[2021-04-05] MEDS: docusate sod 100mg capsule PO SCH ×2 (08:00→20:44)
[2021-04-05] MEDS: K and/or MAG REPLACEMENT MC SCH ×2 (08:00→20:00)
[2021-04-05 08:10] VITALS: BP 114/77
[2021-04-05] MEDS: lactobacillus rhamnosus 10,000 MMU CELLS/CAPSULE PO SCH ×2 (11:00→20:44)
[2021-04-05] MEDS: sodium chloride 0.45% 1,000 ML IV SCH ×2 (11:05→20:45)
[2021-04-05 11:10] VITALS: BP 126/85
[2021-04-05] MEDS: salt irrigation nasal spray 45 ML SPRAY NS SCH (12:40)
[2021-04-05] MEDS: fluticasone nasal spray 16GM bottle NS SCH (12:41)
--- NOTE | 2021-04-05 17:35 | NUR ---
Delmy () called. Quite a long conversation with indirect questions. 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 States she and Dr. Thompson are concerned about a bile leak and she wants to know if her was "nicked" during a previous surgery and if that what was caused this infection. She also wants to know why Ronak's office did not prescribe antibiotics on previous discharge. And her last question is "Can we start prescribing oregeno oil to her because she knows e. coli is an antibiotic resistant organism and she feels that oregano could assist in curing the infection." Explained that Tin's office is closed at this time but provided contact phone number. Discussed with charge, whom agreed it was not necessary to contact the surgeon regarding these non-emergent questions at this time. Pt agrees to call Ronak's office in the AM.
[2021-04-05 20:09] VITALS: BP 129/83
[2021-04-06] VITALS: BP 129/85
--- NOTE | 2021-04-06 00:32 | NUR ---
Care released to web solutions architect Penny.
--- NOTE | 2021-04-06 00:57 | NUR ---
Check on patient having assumed care, resting appears comfortable.
[2021-04-06 07:00] VITALS: BP 115/74
[2021-04-06] MEDS: sodium chloride 0.45% 1,000 ML IV SCH ×3 (07:06→17:12)
[2021-04-06 07:08] LABS: BASOPHILS % (AUTO) 0.5 % (0-1); EOSINOPHILS # (AUTO) 0.2 X10'3 (0-0.9); EOSINOPHILS % (AUTO) 2.7 % (0-6); HEMATOCRIT 35.6 % (42.0-52.0); HEMOGLOBIN 11.5 g/dl (14.0-17.9); LYMPHOCYTES # (AUTO) 1.6 X10'3 (1.1-4.8); LYMPHOCYTES % (AUTO) 17.2 % (21-51); MEAN CORPUSCULAR HEMOGLOBIN 28.3 PG (27.0-31.0); MEAN CORPUSCULAR HGB CONC 32.3 g/dL (33.0-36.5); MEAN CORPUSCULAR VOLUME 87.8 FL (78-98); MEAN PLATELET VOLUME 7.3 FL (7.4-10.4); MONOCYTES # (AUTO) 1.1 X10'3 (0-0.9); MONOCYTES % (AUTO) 12.3 % (2-12); NEUTROPHILS # (AUTO) 6.1 X10'3 (1.8-7.7); NEUTROPHILS % (AUTO) 67.3 % (42-75); PLATELET COUNT 271 X10'3 (140-440); RED BLOOD COUNT 4.05 X10'6 (4.70-6.10); RED CELL DISTRIBUTION WIDTH 13.6 % (11.5-14.5); WHITE BLOOD COUNT 9.1 X10'3 (4.5-11.0)
[2021-04-06 07:15] LABS: ALANINE AMINOTRANSFERASE 13 U/L (12-78); ALBUMIN 1.8 G/DL (3.4-5.0); ALBUMIN/GLOBULIN RATIO 0.4 (1.1-1.5); ALKALINE PHOSPHATASE 67 IU/L (46-116); ANION GAP 8 (8-16); ASPARTATE AMINO TRANSFERASE 17 U/L (10-37); BILIRUBIN,TOTAL 0.3 MG/DL (0.1-1.0); BLOOD UREA NITROGEN 4 MG/DL (7-18); BUN/CREATININE RATIO 4.5 (5.4-32.0); CALCIUM 7.9 MG/DL (8.5-10.1); CHLORIDE 110 MMOL/L (99-107); CREATININE 0.88 MG/DL (0.60-1.10); GLUCOSE 91 MG/DL (70-104); MAGNESIUM 2.1 MG/DL (1.5-2.4); POTASSIUM 3.7 MMOL/L (3.5-5.1); SODIUM 144 MMOL/L (135-145); TOTAL CARBON DIOXIDE 25.9 MMOL/L (24-32); eGFR 90 ML/MIN
[2021-04-06] MEDS: lactobacillus rhamnosus 10,000 MMU CELLS/CAPSULE PO SCH ×2 (07:32→20:59)
[2021-04-06] MEDS: fluticasone nasal spray 16GM bottle NS SCH (07:33)
[2021-04-06] MEDS: salt irrigation nasal spray 45 ML SPRAY NS SCH (07:33)
[2021-04-06] MEDS: docusate sod 100mg capsule PO SCH ×2 (07:34→20:00)
[2021-04-06] MEDS: K and/or MAG REPLACEMENT MC SCH ×2 (07:34→20:00)
[2021-04-06] MEDS: piperacillin/tazo 4.5gm/100ml 100 ML IV SCH (07:34)
--- NOTE | 2021-04-06 12:20 | NUR ---
Initial: Pt admitted w/ abd discomfort and nausea per EMR. CT on 04/02 showed abdominal retroperitoneal abscess, which was drained on 04/03. Pt states that he has been feeling better since then and is eating 100% of meals on Regular diet meeting needs. No N/V/D noted, LBM 04/04. No nutritional diagnosis at this time, will continue to monitor. Recs: 1. Continue Regular diet as tolerated 2. Bowel care per rx 3. Weekly wts Addendum: 04/06/21 at [address] Amended: Links added.
[2021-04-06 13:00] VITALS: BP 131/90
[2021-04-06] MEDS: piperacillin/tazo 3.375gm/50ml 50 ML IV SCH (16:21)
--- NOTE | 2021-04-06 18:19 | NUR ---
Problems reprioritized. Patient report given, questions answered & plan of care reviewed with Ping RN.
[2021-04-06 19:30] VITALS: BP 124/84
[2021-04-06] MEDS: enoxaparin 40mg/0.4ml syringe SUBCUT SCH (21:01)
[2021-04-07 00:30] VITALS: BP 128/79
[2021-04-07] MEDS: piperacillin/tazo 3.375gm/50ml 50 ML IV SCH ×4 (00:48→23:58)
[2021-04-07] MEDS: sodium chloride 0.45% 1,000 ML IV SCH ×2 (03:54→20:30)
[2021-04-07 06:30] VITALS: BP 133/90
--- NOTE | 2021-04-07 06:30 | NUR ---
Patient in room ROYCE 345. I have received report from ROBEL Feng and had the opportunity to ask questions and assume patient care.
[2021-04-07 07:59] LABS: BASOPHILS # (AUTO) 0.1 X10'3 (0-0.2); BASOPHILS % (AUTO) 0.6 % (0-1); EOSINOPHILS # (AUTO) 0.2 X10'3 (0-0.9); EOSINOPHILS % (AUTO) 2.3 % (0-6); HEMATOCRIT 37.3 % (42.0-52.0); HEMOGLOBIN 12.1 g/dl (14.0-17.9); LYMPHOCYTES # (AUTO) 1.8 X10'3 (1.1-4.8); LYMPHOCYTES % (AUTO) 18.4 % (21-51); MEAN CORPUSCULAR HEMOGLOBIN 28.3 PG (27.0-31.0); MEAN CORPUSCULAR HGB CONC 32.5 g/dL (33.0-36.5); MEAN CORPUSCULAR VOLUME 87.2 FL (78-98); MEAN PLATELET VOLUME 7.2 FL (7.4-10.4); MONOCYTES # (AUTO) 1.1 X10'3 (0-0.9); MONOCYTES % (AUTO) 10.8 % (2-12); NEUTROPHILS # (AUTO) 6.8 X10'3 (1.8-7.7); NEUTROPHILS % (AUTO) 67.9 % (42-75); PLATELET COUNT 324 X10'3 (140-440); RED BLOOD COUNT 4.28 X10'6 (4.70-6.10); RED CELL DISTRIBUTION WIDTH 13.8 % (11.5-14.5)
[2021-04-07] MEDS: K and/or MAG REPLACEMENT MC SCH ×2 (08:00→20:00)
[2021-04-07 08:09] LABS: ALANINE AMINOTRANSFERASE 25 U/L (12-78); ALBUMIN/GLOBULIN RATIO 0.4 (1.1-1.5); ALKALINE PHOSPHATASE 76 IU/L (46-116); ANION GAP 10 (8-16); ASPARTATE AMINO TRANSFERASE 25 U/L (10-37); BILIRUBIN,TOTAL 0.5 MG/DL (0.1-1.0); BLOOD UREA NITROGEN 5 MG/DL (7-18); BUN/CREATININE RATIO 5.1 (5.4-32.0); CALCIUM 7.9 MG/DL (8.5-10.1); CHLORIDE 108 MMOL/L (99-107); CREATININE 0.98 MG/DL (0.60-1.10); GLUCOSE 99 MG/DL (70-104); MAGNESIUM 2.2 MG/DL (1.5-2.4); POTASSIUM 3.6 MMOL/L (3.5-5.1); SODIUM 144 MMOL/L (135-145); TOTAL CARBON DIOXIDE 25.6 MMOL/L (24-32); TOTAL PROTEIN 6.6 G/DL (6.4-8.2); eGFR 79 ML/MIN
[2021-04-07 09:09] LABS: NUCLEATED RED BLOOD CELLS 1 /100WBC (0-0); TOTAL CELLS COUNTED 100
[2021-04-07 09:12] LABS: PLATELET ESTIMATE NORMAL
[2021-04-07 09:13] LABS: TOXIC GRANULATION 1+
[2021-04-07] MEDS: docusate sod 100mg capsule PO SCH ×2 (09:57→20:00)
[2021-04-07] MEDS: lactobacillus rhamnosus 10,000 MMU CELLS/CAPSULE PO SCH ×2 (10:01→21:52)
[2021-04-07] MEDS: fluticasone nasal spray 16GM bottle NS SCH (10:01)
[2021-04-07] MEDS: salt irrigation nasal spray 45 ML SPRAY NS SCH (10:01)
[2021-04-07 11:00] VITALS: BP 131/97
[2021-04-07 18:00] VITALS: BP 129/92
--- NOTE | 2021-04-07 18:30 | NUR ---
Problems reprioritized. Patient report given, questions answered & plan of care reviewed with ROBEL Burns.
[2021-04-07] MEDS: diatr meglu/diatrizoate 30ml oral sol.-(3 dose) bottle PO SCH (21:51)
[2021-04-07] MEDS: enoxaparin 40mg/0.4ml syringe SUBCUT SCH (21:52)
--- NOTE | 2021-04-07 22:42 | NUR ---
Patient in room ROYCE 345. I have received report from Claudia HUSTON and had the opportunity to ask questions and assume patient care.
[2021-04-08] VITALS: BP 118/81
[2021-04-08] MEDS: sodium chloride 0.45% 1,000 ML IV SCH ×2 (05:59→17:04)
--- NOTE | 2021-04-08 06:20 | NUR ---
Patient in room ROYCE 345. I have received report from ROBEL Burns and had the opportunity to ask questions and assume patient care.
[2021-04-08 06:30] VITALS: BP 133/90
[2021-04-08 06:32] LABS: MAGNESIUM 2.3 MG/DL (1.5-2.4)
--- NOTE | 2021-04-08 06:35 | NUR ---
Problems reprioritized. Patient report given, questions answered & plan of care reviewed with Claudia Rn.
[2021-04-08 07:21] LABS: BASOPHILS % (AUTO) 0.3 % (0-1); EOSINOPHILS # (AUTO) 0.2 X10'3 (0-0.9); EOSINOPHILS % (AUTO) 1.6 % (0-6); HEMATOCRIT 36.4 % (42.0-52.0); LYMPHOCYTES # (AUTO) 1.8 X10'3 (1.1-4.8); LYMPHOCYTES % (AUTO) 15.8 % (21-51); MEAN CORPUSCULAR HEMOGLOBIN 28.6 PG (27.0-31.0); MEAN CORPUSCULAR HGB CONC 32.9 g/dL (33.0-36.5); MEAN CORPUSCULAR VOLUME 86.9 FL (78-98); MONOCYTES # (AUTO) 0.9 X10'3 (0-0.9); MONOCYTES % (AUTO) 7.9 % (2-12); NEUTROPHILS # (AUTO) 8.5 X10'3 (1.8-7.7); NEUTROPHILS % (AUTO) 74.4 % (42-75); PLATELET COUNT 298 X10'3 (140-440); RED BLOOD COUNT 4.19 X10'6 (4.70-6.10); RED CELL DISTRIBUTION WIDTH 13.8 % (11.5-14.5); WHITE BLOOD COUNT 11.4 X10'3 (4.5-11.0)
[2021-04-08 07:31] LABS: ALANINE AMINOTRANSFERASE 28 U/L (12-78); ALBUMIN 2.1 G/DL (3.4-5.0); ALBUMIN/GLOBULIN RATIO 0.5 (1.1-1.5); ALKALINE PHOSPHATASE 76 IU/L (46-116); ANION GAP 9 (8-16); ASPARTATE AMINO TRANSFERASE 20 U/L (10-37); BILIRUBIN,TOTAL 0.3 MG/DL (0.1-1.0); BLOOD UREA NITROGEN 5 MG/DL (7-18); BUN/CREATININE RATIO 4.8 (5.4-32.0); CALCIUM 8.2 MG/DL (8.5-10.1); CHLORIDE 110 MMOL/L (99-107); CREATININE 1.05 MG/DL (0.60-1.10); GLUCOSE 96 MG/DL (70-104); POTASSIUM 4.1 MMOL/L (3.5-5.1); SODIUM 146 MMOL/L (135-145); TOTAL CARBON DIOXIDE 27.1 MMOL/L (24-32); TOTAL PROTEIN 6.5 G/DL (6.4-8.2); eGFR 73 ML/MIN
[2021-04-08] MEDS: K and/or MAG REPLACEMENT MC SCH ×2 (07:38→19:18)
[2021-04-08] MEDS: diatr meglu/diatrizoate 30ml oral sol.-(3 dose) bottle PO SCH ×2 (07:53→09:56)
[2021-04-08] MEDS: lactobacillus rhamnosus 10,000 MMU CELLS/CAPSULE PO SCH ×2 (07:53→20:04)
[2021-04-08] MEDS: docusate sod 100mg capsule PO SCH ×3 (07:53→20:00)
[2021-04-08] MEDS: fluticasone nasal spray 16GM bottle NS SCH (07:53)
[2021-04-08] MEDS: piperacillin/tazo 3.375gm/50ml 50 ML IV SCH ×2 (07:53→16:18)
[2021-04-08] MEDS: salt irrigation nasal spray 45 ML SPRAY NS SCH (07:53)
[2021-04-08] MEDS ORDERED: iohexol 300mg/ml 100ml inj. ONE (09:53)
[2021-04-08 11:00] VITALS: BP 126/86
--- NOTE | 2021-04-08 17:55 | NUR ---
Per Dr Sebas hammond for patient to eat. Primary RN aware patients dinner tray provided.
--- NOTE | 2021-04-08 18:30 | NUR ---
Problems reprioritized. Patient report given, questions answered & plan of care reviewed with Yelena Kirk RN.
--- NOTE | 2021-04-08 18:35 | NUR ---
Patient in room ROYCE 345. I have received report from NICOLE HUSTON and had the opportunity to ask questions and assume patient care.
[2021-04-08 19:00] VITALS: BP 132/95
[2021-04-08] MEDS: enoxaparin 40mg/0.4ml syringe SUBCUT SCH (20:04)
[2021-04-09] VITALS (20 sets, daily range): BP systolic 111–148; BP diastolic 60–97
[2021-04-09] MEDS: piperacillin/tazo 3.375gm/50ml 50 ML IV SCH ×4 (00:27→23:59)
[2021-04-09] MEDS: sodium chloride 0.45% 1,000 ML IV SCH ×2 (02:09→14:51)
--- NOTE | 2021-04-09 06:30 | NUR ---
Problems reprioritized. Patient report given, questions answered & plan of care reviewed with KETTY HUSTON.
--- NOTE | 2021-04-09 06:40 | NUR ---
Patient in room ROYCE 345. I have received report from Yelena Kirk RN and had the opportunity to ask questions and assume patient care.
[2021-04-09] MEDS: docusate sod 100mg capsule PO SCH ×2 (08:00→20:00)
[2021-04-09] MEDS: K and/or MAG REPLACEMENT MC SCH ×2 (08:00→20:00)
[2021-04-09] MEDS: lactobacillus rhamnosus 10,000 MMU CELLS/CAPSULE PO SCH ×2 (08:12→20:29)
[2021-04-09] MEDS: salt irrigation nasal spray 45 ML SPRAY NS SCH (08:12)
[2021-04-09] MEDS: fluticasone nasal spray 16GM bottle NS SCH (08:12)
[2021-04-09] MEDS ORDERED: fentaNYL/PF 50MCG/1 ML 2ML syringe ONE ×2 (10:21→11:21)
[2021-04-09] MEDS ORDERED: midazolam 1 mg/ML 2ml injection ONE ×2 (10:21→11:21)
[2021-04-09] MEDS ORDERED: iohexol 300mg/ml 100ml inj. ONE ×2 (10:37→10:38)
[2021-04-09] MEDS ORDERED: tPA-cathflo 2 MG/2 ml IV flush ONE (11:39)
[2021-04-09] MEDS ORDERED: HYDROcodone/acetaminophen 10/325mg tab PO PRN (14:35)
[2021-04-09] MEDS: HYDROcodone/acetaminophen 5mg/325mg tablet PO PRN ×2 (14:47→20:29)
--- NOTE | 2021-04-09 18:30 | NUR ---
Patient in room ROYCE 345. I have received report from KETTY and had the opportunity to ask questions and assume patient care.
--- NOTE | 2021-04-09 18:56 | NUR ---
Problems reprioritized. Patient report given, questions answered & plan of care reviewed with Trice HUSTON.
[2021-04-09] MEDS: enoxaparin 40mg/0.4ml syringe SUBCUT SCH (20:29)
[2021-04-10] VITALS: BP 104/66
[2021-04-10] MEDS: HYDROcodone/acetaminophen 5mg/325mg tablet PO PRN ×2 (05:00→20:00)
[2021-04-10 05:58] LABS: BASOPHILS % (AUTO) 0.2 % (0-1); EOSINOPHILS # (AUTO) 0.1 X10'3 (0-0.9); EOSINOPHILS % (AUTO) 0.8 % (0-6); HEMATOCRIT 38.5 % (42.0-52.0); HEMOGLOBIN 12.4 g/dl (14.0-17.9); LYMPHOCYTES # (AUTO) 1.5 X10'3 (1.1-4.8); LYMPHOCYTES % (AUTO) 10.3 % (21-51); MEAN CORPUSCULAR HEMOGLOBIN 28.4 PG (27.0-31.0); MEAN CORPUSCULAR HGB CONC 32.2 g/dL (33.0-36.5); MEAN CORPUSCULAR VOLUME 88.2 FL (78-98); MEAN PLATELET VOLUME 6.9 FL (7.4-10.4); MONOCYTES % (AUTO) 6.9 % (2-12); NEUTROPHILS # (AUTO) 11.7 X10'3 (1.8-7.7); NEUTROPHILS % (AUTO) 81.8 % (42-75); PLATELET COUNT 356 X10'3 (140-440); RED BLOOD COUNT 4.36 X10'6 (4.70-6.10); RED CELL DISTRIBUTION WIDTH 14.5 % (11.5-14.5); WHITE BLOOD COUNT 14.3 X10'3 (4.5-11.0)
[2021-04-10 06:18] LABS: GLUCOSE 93 MG/DL (70-104); POTASSIUM 4.3 MMOL/L (3.5-5.1); SODIUM 140 MMOL/L (135-145)
[2021-04-10 06:19] LABS: ALBUMIN 2.4 G/DL (3.4-5.0); ANION GAP 5 (8-16); BLOOD UREA NITROGEN 8 MG/DL (7-18); BUN/CREATININE RATIO 7.3 (5.4-32.0); CALCIUM 8.6 MG/DL (8.5-10.1); CHLORIDE 106 MMOL/L (99-107); TOTAL CARBON DIOXIDE 29.3 MMOL/L (24-32); eGFR 69 ML/MIN
--- NOTE | 2021-04-10 06:30 | NUR ---
Patient in room ROYCE 345. I have received report from Trice and had the opportunity to ask questions and assume patient care.
--- NOTE | 2021-04-10 06:35 | NUR ---
Problems reprioritized. Patient report given, questions answered & plan of care reviewed with
[2021-04-10 07:00] VITALS: BP 104/72
[2021-04-10] MEDS: K and/or MAG REPLACEMENT MC SCH ×2 (08:00→19:48)
[2021-04-10] MEDS: piperacillin/tazo 3.375gm/50ml 50 ML IV SCH ×3 (08:24→23:21)
--- NOTE | 2021-04-10 09:00 | NUR ---
IR Aldo at bedside. Irrigated both ARLET sites with 20mls NS each. Rt abd ARLET draining cobb purulent fluid. Lt back ARLET draining brick/brown colored fluid. Pt denies discomfort.
[2021-04-10] MEDS: fluticasone nasal spray 16GM bottle NS SCH (09:11)
[2021-04-10] MEDS: salt irrigation nasal spray 45 ML SPRAY NS SCH (09:11)
[2021-04-10] MEDS: lactobacillus rhamnosus 10,000 MMU CELLS/CAPSULE PO SCH ×2 (09:12→19:48)
[2021-04-10] MEDS: docusate sod 100mg capsule PO SCH ×2 (09:13→19:48)
[2021-04-10 18:00] VITALS: BP 115/77
--- NOTE | 2021-04-10 18:30 | NUR ---
Problems reprioritized. Patient report given, questions answered & plan of care reviewed with abdoulaye HUSTON.
--- NOTE | 2021-04-10 18:32 | NUR ---
Patient in room ROYCE 345. I have received report from ROBEL Gold and had the opportunity to ask questions and assume patient care.
[2021-04-10] MEDS: enoxaparin 40mg/0.4ml syringe SUBCUT SCH (19:48)
[2021-04-11] VITALS: BP 90/61
--- NOTE | 2021-04-11 06:29 | NUR ---
Problems reprioritized. Patient report given, questions answered & plan of care reviewed with ROBEL Gold.
--- NOTE | 2021-04-11 06:37 | NUR ---
Patient in room ROYCE 345. I have received report from Conchita HUSTON and had the opportunity to ask questions and assume patient care.
[2021-04-11 07:03] LABS: BASOPHILS % (AUTO) 0.1 % (0-1); EOSINOPHILS # (AUTO) 0.2 X10'3 (0-0.9); EOSINOPHILS % (AUTO) 1.4 % (0-6); HEMATOCRIT 40.1 % (42.0-52.0); LYMPHOCYTES # (AUTO) 1.9 X10'3 (1.1-4.8); MEAN CORPUSCULAR HEMOGLOBIN 28.3 PG (27.0-31.0); MEAN CORPUSCULAR HGB CONC 32.4 g/dL (33.0-36.5); MEAN CORPUSCULAR VOLUME 87.2 FL (78-98); MEAN PLATELET VOLUME 6.7 FL (7.4-10.4); MONOCYTES # (AUTO) 1.1 X10'3 (0-0.9); MONOCYTES % (AUTO) 8.4 % (2-12); NEUTROPHILS # (AUTO) 9.5 X10'3 (1.8-7.7); NEUTROPHILS % (AUTO) 75.1 % (42-75); PLATELET COUNT 372 X10'3 (140-440); RED CELL DISTRIBUTION WIDTH 14.2 % (11.5-14.5); WHITE BLOOD COUNT 12.6 X10'3 (4.5-11.0)
[2021-04-11 07:26] LABS: ALBUMIN 2.5 G/DL (3.4-5.0); ANION GAP 8 (8-16); BLOOD UREA NITROGEN 9 MG/DL (7-18); BUN/CREATININE RATIO 9.7 (5.4-32.0); CALCIUM 8.6 MG/DL (8.5-10.1); CHLORIDE 106 MMOL/L (99-107); CREATININE 0.93 MG/DL (0.60-1.10); GLUCOSE 86 MG/DL (70-104); POTASSIUM 4.2 MMOL/L (3.5-5.1); SODIUM 141 MMOL/L (135-145); TOTAL CARBON DIOXIDE 26.6 MMOL/L (24-32); eGFR 84 ML/MIN
[2021-04-11] MEDS: salt irrigation nasal spray 45 ML SPRAY NS SCH (07:35)
[2021-04-11] MEDS: fluticasone nasal spray 16GM bottle NS SCH (07:35)
[2021-04-11] MEDS: lactobacillus rhamnosus 10,000 MMU CELLS/CAPSULE PO SCH ×2 (07:35→19:56)
[2021-04-11] MEDS: piperacillin/tazo 3.375gm/50ml 50 ML IV SCH ×3 (07:35→23:54)
[2021-04-11] MEDS: docusate sod 100mg capsule PO SCH ×2 (07:36→20:00)
[2021-04-11] MEDS: K and/or MAG REPLACEMENT MC SCH ×2 (07:36→19:57)
[2021-04-11 08:00] VITALS: BP 109/77
[2021-04-11 11:00] VITALS: BP 110/75
[2021-04-11] MEDS ORDERED: ringers solution, lacted 1,000 ML IV ONE (12:20)
[2021-04-11] MEDS: HYDROcodone/acetaminophen 5mg/325mg tablet PO PRN (15:09)
[2021-04-11 18:00] VITALS: BP_SYST 107; BP_SYST 132; BP_DIAS 71; BP_DIAS 92
--- NOTE | 2021-04-11 18:34 | NUR ---
Problems reprioritized. Patient report given, questions answered & plan of care reviewed with Conchita HUSTON.
[2021-04-11] MEDS: enoxaparin 40mg/0.4ml syringe SUBCUT SCH (20:00)
[2021-04-12] VITALS (16 sets, daily range): BP systolic 107–146; BP diastolic 61–93
[2021-04-12] MEDS: HYDROcodone/acetaminophen 5mg/325mg tablet PO PRN (03:21)
[2021-04-12] MEDS ORDERED: famotidine 20mg tablet PO ONE ×2 (06:00→07:15)
[2021-04-12 06:29] LABS: BASOPHILS % (AUTO) 0.2 % (0-1); EOSINOPHILS # (AUTO) 0.2 X10'3 (0-0.9); EOSINOPHILS % (AUTO) 1.4 % (0-6); HEMATOCRIT 40.7 % (42.0-52.0); HEMOGLOBIN 13.2 g/dl (14.0-17.9); LYMPHOCYTES # (AUTO) 1.6 X10'3 (1.1-4.8); LYMPHOCYTES % (AUTO) 12.7 % (21-51); MEAN CORPUSCULAR HEMOGLOBIN 28.7 PG (27.0-31.0); MEAN CORPUSCULAR HGB CONC 32.6 g/dL (33.0-36.5); MEAN CORPUSCULAR VOLUME 88.1 FL (78-98); MEAN PLATELET VOLUME 6.7 FL (7.4-10.4); MONOCYTES # (AUTO) 0.9 X10'3 (0-0.9); MONOCYTES % (AUTO) 7.1 % (2-12); NEUTROPHILS # (AUTO) 9.8 X10'3 (1.8-7.7); NEUTROPHILS % (AUTO) 78.6 % (42-75); PLATELET COUNT 395 X10'3 (140-440); RED BLOOD COUNT 4.62 X10'6 (4.70-6.10); RED CELL DISTRIBUTION WIDTH 14.7 % (11.5-14.5); WHITE BLOOD COUNT 12.5 X10'3 (4.5-11.0)
--- NOTE | 2021-04-12 06:35 | NUR ---
Problems reprioritized. Patient report given, questions answered & plan of care reviewed with ROBEL Henley.
[2021-04-12 06:42] LABS: PRE OP PARTIAL THROMB. TIME 28 SECONDS (22-32)
[2021-04-12 07:02] LABS: ALBUMIN 2.6 G/DL (3.4-5.0); ANION GAP 8 (8-16); BLOOD UREA NITROGEN 9 MG/DL (7-18); BUN/CREATININE RATIO 8.7 (5.4-32.0); CALCIUM 8.9 MG/DL (8.5-10.1); CHLORIDE 106 MMOL/L (99-107); CREATININE 1.04 MG/DL (0.60-1.10); GLUCOSE 92 MG/DL (70-104); POTASSIUM 4.2 MMOL/L (3.5-5.1); SODIUM 142 MMOL/L (135-145); TOTAL CARBON DIOXIDE 28.1 MMOL/L (24-32); eGFR 74 ML/MIN
[2021-04-12] MEDS: piperacillin/tazo 3.375gm/50ml 50 ML IV SCH ×2 (07:44→15:58)
[2021-04-12] MEDS: salt irrigation nasal spray 45 ML SPRAY NS SCH (07:44)
[2021-04-12] MEDS: fluticasone nasal spray 16GM bottle NS SCH (07:45)
[2021-04-12] MEDS: lactobacillus rhamnosus 10,000 MMU CELLS/CAPSULE PO SCH ×2 (07:45→20:00)
[2021-04-12] MEDS: docusate sod 100mg capsule PO SCH ×2 (07:45→20:00)
[2021-04-12] MEDS: K and/or MAG REPLACEMENT MC SCH ×2 (07:45→20:00)
[2021-04-12] MEDS ORDERED: ondansetron/PF 4mg/2ml inj IV PRN (08:00)
[2021-04-12] MEDS ORDERED: morphine 2 MG/ML inj. syringe IV PRN (08:00)
[2021-04-12] MEDS ORDERED: ringers solution, lacted 1,000 ML IV SCH (08:00)
[2021-04-12] MEDS ORDERED: labetalol 20mg/4ml (5mg/ml) syringe IV PRN (08:00)
[2021-04-12] MEDS ORDERED: hydrALAZINE 20mg/ml inj. IV PRN (08:00)
[2021-04-12] MEDS ORDERED: morphine 4 MG/ML inj SYRINge IV PRN (08:00)
[2021-04-12] MEDS ORDERED: fentaNYL/PF 50MCG/1 ML 2ML syringe IV PRN (08:00)
--- NOTE | 2021-04-12 09:23 | NUR ---
Pt. taken off floor to OR by OR staff. BG 91.
--- NOTE | 2021-04-12 09:26 | NUR ---
Reassessment: Patient's PO intake slightly fluctuates though overall averaging 75% PO intake of meals. Noted pt to OR today d/t the considerable size of both abscesses per MD note. Pt likely NPO at this time. [facility] 04/11. No nutrition intervention implemented at this time. Will continue to follow. Recs: 1. Continue regular diet 2. Bowel care per rx 3. Scaled weight this admit; weekly scaled weights thereafter Addendum: 04/12/21 at [address] Amended: Links added.
[2021-04-12] MEDS ORDERED: BUPIVAcaine/PF 2.5mg/ml (0.25%) 10ml vial ONE (09:31)
[2021-04-12] MEDS ORDERED: BUPIVACAINE liposomal/PF 13.3 MG/ML vial IM ONE (09:33)
[2021-04-12] MEDS ORDERED: fentaNYL/PF 50MCG/1 ML 2ML syringe ONE (09:38)
[2021-04-12] MEDS ORDERED: midazolam 1 mg/ML 2ml injection ONE (09:38)
[2021-04-12] MEDS ORDERED: sevoflurane 250ml liquid IH ONE (10:06)
[2021-04-12] MEDS ORDERED: phenylephrine 10mg/ml inj. ONE (10:06)
[2021-04-12] MEDS ORDERED: albumin (Human) 5% 250ml 250 ML IV ONE ×3 (10:34→10:38)
[2021-04-12] MEDS ORDERED: ondansetron/PF 4mg/2ml inj ONE (10:40)
[2021-04-12] MEDS ORDERED: dexamethasone sod phosphate 4mg/ml inj. ONE (10:40)
[2021-04-12] MEDS ORDERED: rocuronium 10mg/ml inj IV ONE (10:41)
[2021-04-12] MEDS ORDERED: LIDOcaine 2% (20mg/ml) 5ml vial ONE (10:41)
[2021-04-12] MEDS ORDERED: propofol inj 20 ML IV ONE (10:41)
[2021-04-12] MEDS ORDERED: neostigmine methylsulfate 1 MG/ML 10ml vial ONE (10:41)
[2021-04-12] MEDS ORDERED: glycopyrrolate 0.2mg/ml inj ONE (10:42)
[2021-04-12] MEDS: fentaNYL/PF 50MCG/1 ML 2ML syringe IV PRN ×2 (11:53→12:08)
--- NOTE | 2021-04-12 12:13 | NUR ---
PT MORE AWAKE VSS NO DISTRESS STATES FEELING LITTLE COMFORTABLE STILL HAVING ABD AND THE URGENCY TO VOID, ED ON DISTRACTION AND TO TAKE LONG DEEP BREATHES AND TRY TO RELAX MED WITH FENT IV SEE MAR STATES STILL HAVING PAIN, BULKY DRESSING INTACT TO ABD WITH SCANT AMT DRAINAGE, MEETS CRITERIA TO DC TO ROOM REPORT CALLED TO ROBEL Addendum: 04/12/21 at 1216 by Alicia Guzman RN Amended: Links added.
--- NOTE | 2021-04-12 15:00 | NUR ---
PT's surgical bandage saturated. Called surgeon. States pt. going to surgery Saturday. Wet to dry dressing if packing needs to be redone, but otherwise just change ABD dressing on top. Changed dressing. Pt. pain controlled at this time. Post-ops stable
[2021-04-12] MEDS: morphine 2 MG/ML inj. syringe IV PRN ×3 (15:35→22:10)
--- NOTE | 2021-04-12 18:08 | NUR ---
GAVE REPORT TO KAREN HUSTON
--- NOTE | 2021-04-12 18:10 | NUR ---
Patient in room ROYCE 345. I have received report from ROBEL Henley and had the opportunity to ask questions and assume patient care.
[2021-04-12 18:14] LABS: BASOPHILS # (AUTO) 0.1 X10'3 (0-0.2); BASOPHILS % (AUTO) 0.4 % (0-1); EOSINOPHILS % (AUTO) 0 % (0-6); HEMATOCRIT 40.3 % (42.0-52.0); HEMOGLOBIN 13.1 g/dl (14.0-17.9); LYMPHOCYTES # (AUTO) 0.5 X10'3 (1.1-4.8); LYMPHOCYTES % (AUTO) 1.6 % (21-51); MEAN CORPUSCULAR HEMOGLOBIN 28.2 PG (27.0-31.0); MEAN CORPUSCULAR HGB CONC 32.5 g/dL (33.0-36.5); MEAN CORPUSCULAR VOLUME 86.7 FL (78-98); MEAN PLATELET VOLUME 6.6 FL (7.4-10.4); MONOCYTES # (AUTO) 0.7 X10'3 (0-0.9); NEUTROPHILS # (AUTO) 32.2 X10'3 (1.8-7.7); PLATELET COUNT 426 X10'3 (140-440); RED BLOOD COUNT 4.65 X10'6 (4.70-6.10); RED CELL DISTRIBUTION WIDTH 14.4 % (11.5-14.5)
[2021-04-12 18:19] LABS: WHITE BLOOD COUNT 33.5 X10'3 (4.5-11.0)
[2021-04-12] MEDS ORDERED: LIDOcaine 2% 10ml TOPICAL JELLY (Urojet) TP ONE (18:50)
[2021-04-12 19:14] LABS: TOTAL CELLS COUNTED 100
[2021-04-12 19:15] LABS: BANDS% (MANUAL) 5 % (0-10); LYMPHOCYTES % (MANUAL) 3 % (21-51); MONOCYTES % (MANUAL) 3 % (2-12); NEUTROPHILS % (MANUAL) 89 % (42-75); PLATELET ESTIMATE NORMAL
[2021-04-12] MEDS: enoxaparin 40mg/0.4ml syringe SUBCUT SCH (21:50)
[2021-04-13] VITALS: BP_SYST 116; BP_SYST 125; BP_DIAS 80; BP_DIAS 84
[2021-04-13] MEDS: famotidine 20mg tablet PO PRN (00:20)
[2021-04-13] MEDS: piperacillin/tazo 3.375gm/50ml 50 ML IV SCH ×2 (00:21→08:31)
[2021-04-13 04:55] VITALS: BP 136/65
[2021-04-13] MEDS: morphine 2 MG/ML inj. syringe IV PRN ×2 (05:29→08:32)
[2021-04-13 05:56] LABS: BASOPHILS % (AUTO) 0.1 % (0-1); EOSINOPHILS % (AUTO) 0 % (0-6); HEMATOCRIT 39.2 % (42.0-52.0); HEMOGLOBIN 12.6 g/dl (14.0-17.9); LYMPHOCYTES # (AUTO) 1.4 X10'3 (1.1-4.8); LYMPHOCYTES % (AUTO) 5.8 % (21-51); MEAN CORPUSCULAR HEMOGLOBIN 28.2 PG (27.0-31.0); MEAN CORPUSCULAR HGB CONC 32.2 g/dL (33.0-36.5); MEAN CORPUSCULAR VOLUME 87.7 FL (78-98); MEAN PLATELET VOLUME 7.1 FL (7.4-10.4); MONOCYTES # (AUTO) 1.3 X10'3 (0-0.9); MONOCYTES % (AUTO) 5.3 % (2-12); NEUTROPHILS # (AUTO) 21.2 X10'3 (1.8-7.7); NEUTROPHILS % (AUTO) 88.8 % (42-75); PLATELET COUNT 525 X10'3 (140-440); RED BLOOD COUNT 4.47 X10'6 (4.70-6.10); RED CELL DISTRIBUTION WIDTH 14.7 % (11.5-14.5); WHITE BLOOD COUNT 23.8 X10'3 (4.5-11.0)
[2021-04-13 06:05] LABS: ALBUMIN 3.1 G/DL (3.4-5.0); ANION GAP 11 (8-16); BLOOD UREA NITROGEN 14 MG/DL (7-18); BUN/CREATININE RATIO 14.1 (5.4-32.0); CHLORIDE 103 MMOL/L (99-107); CREATININE 0.99 MG/DL (0.60-1.10); GLUCOSE 122 MG/DL (70-104); POTASSIUM 4.5 MMOL/L (3.5-5.1); SODIUM 139 MMOL/L (135-145); TOTAL CARBON DIOXIDE 25.2 MMOL/L (24-32); eGFR 78 ML/MIN
--- NOTE | 2021-04-13 06:18 | NUR ---
Patient in room ROYCE 345. I have received report from Julio HUSTON and had the opportunity to ask questions and assume patient care.
--- NOTE | 2021-04-13 06:54 | NUR ---
Problems reprioritized. Patient report given, questions answered & plan of care reviewed with ROBEL Esteves.
[2021-04-13 07:00] VITALS: BP 132/87
[2021-04-13] MEDS: K and/or MAG REPLACEMENT MC SCH ×2 (08:00→20:00)
[2021-04-13] MEDS: docusate sod 100mg capsule PO SCH ×2 (08:31→19:44)
[2021-04-13] MEDS: lactobacillus rhamnosus 10,000 MMU CELLS/CAPSULE PO SCH ×2 (08:31→19:44)
[2021-04-13] MEDS: salt irrigation nasal spray 45 ML SPRAY NS SCH (08:41)
[2021-04-13] MEDS: fluticasone nasal spray 16GM bottle NS SCH (08:41)
[2021-04-13] MEDS: HYDROmorphone inj. 0.5 MG/0.5 ML DISP.SYRIN IV PRN ×4 (10:36→19:43)
[2021-04-13 11:00] VITALS: BP 131/85
[2021-04-13] MEDS: piperacillin/tazo 4.5gm/100ml 100 ML IV SCH (16:29)
--- NOTE | 2021-04-13 17:39 | NUR ---
patient stated that morphine does not work this am. seen by DR alexis changed to dilaudid q2hrly see EMAR effective for pain management. Ambulated x1 200ft. encouraged to use IS only inflating to 500 cc. Time spent educating patient as to importance of ambulation and using IS, was reluctant at times to partake in tmt. will continue to encourage and monitor.patient seen by Dr Teixeira is for surgery in am NPO after midnight
[2021-04-13 18:00] VITALS: BP 126/91
--- NOTE | 2021-04-13 18:50 | NUR ---
I have received report from ROBEL Oneill and had the opportunity to ask questions and assume patient care.
--- NOTE | 2021-04-13 18:52 | NUR ---
Problems reprioritized. Patient report given, questions answered & plan of care reviewed with Julio HUSTON.
[2021-04-14] VITALS (16 sets, daily range): BP systolic 125–141; BP diastolic 88–96
[2021-04-14] MEDS: piperacillin/tazo 4.5gm/100ml 100 ML IV SCH ×3 (00:34→17:32)
[2021-04-14] MEDS: HYDROmorphone inj. 0.5 MG/0.5 ML DISP.SYRIN IV PRN ×5 (01:19→20:39)
--- NOTE | 2021-04-14 06:43 | NUR ---
Patient in room ROYCE 345. I have received report from Julio HUSTON and had the opportunity to ask questions and assume patient care.
[2021-04-14] MEDS: salt irrigation nasal spray 45 ML SPRAY NS SCH (07:18)
[2021-04-14] MEDS: fluticasone nasal spray 16GM bottle NS SCH (07:19)
[2021-04-14] MEDS: lactobacillus rhamnosus 10,000 MMU CELLS/CAPSULE PO SCH ×2 (07:24→20:39)
[2021-04-14] MEDS: docusate sod 100mg capsule PO SCH ×2 (07:24→20:39)
[2021-04-14] MEDS: K and/or MAG REPLACEMENT MC SCH ×2 (08:00→20:00)
[2021-04-14 10:10] LABS: BASOPHILS # (AUTO) 0.1 X10'3 (0-0.2); BASOPHILS % (AUTO) 0.3 % (0-1); EOSINOPHILS % (AUTO) 0.1 % (0-6); HEMATOCRIT 39.2 % (42.0-52.0); HEMOGLOBIN 12.9 g/dl (14.0-17.9); LYMPHOCYTES # (AUTO) 1.2 X10'3 (1.1-4.8); LYMPHOCYTES % (AUTO) 4.8 % (21-51); MEAN CORPUSCULAR HEMOGLOBIN 28.2 PG (27.0-31.0); MEAN CORPUSCULAR HGB CONC 32.9 g/dL (33.0-36.5); MEAN CORPUSCULAR VOLUME 85.7 FL (78-98); MEAN PLATELET VOLUME 6.6 FL (7.4-10.4); MONOCYTES # (AUTO) 1.7 X10'3 (0-0.9); MONOCYTES % (AUTO) 6.5 % (2-12); NEUTROPHILS # (AUTO) 23.1 X10'3 (1.8-7.7); NEUTROPHILS % (AUTO) 88.3 % (42-75); PLATELET COUNT 463 X10'3 (140-440); RED BLOOD COUNT 4.58 X10'6 (4.70-6.10); RED CELL DISTRIBUTION WIDTH 15.2 % (11.5-14.5)
[2021-04-14 10:13] LABS: WHITE BLOOD COUNT 26.2 X10'3 (4.5-11.0)
--- NOTE | 2021-04-14 10:15 | NUR ---
PAGER ID: [phone] MESSAGE: Radha-Surg [phone] Re: Mark WBC 26.2 up from 23.8 critical
[2021-04-14 10:27] LABS: PARTIAL THROMBOPLASTIN TIME 29 SECONDS (22-32)
[2021-04-14] MEDS ORDERED: morphine 2 MG/ML inj. syringe IV PRN (10:35)
[2021-04-14] MEDS ORDERED: meperidine/PF 25mg/ml syringe IV PRN ×3 (10:35)
[2021-04-14] MEDS ORDERED: ringers solution, lacted 1,000 ML IV SCH (10:35)
[2021-04-14] MEDS ORDERED: acetaminophen 1,000mg/100ml IV 100 ML IV PRN (10:35)
[2021-04-14] MEDS ORDERED: morphine 4 MG/ML inj SYRINge IV PRN (10:35)
[2021-04-14] MEDS ORDERED: hydrALAZINE 20mg/ml inj. IV PRN (10:35)
[2021-04-14] MEDS ORDERED: proCHLORperazine 10 MG/2 ml inj IV PRN (10:35)
[2021-04-14] MEDS ORDERED: ondansetron/PF 4mg/2ml inj IV PRN (10:35)
[2021-04-14] MEDS ORDERED: labetalol 20mg/4ml (5mg/ml) syringe IV PRN (10:35)
--- NOTE | 2021-04-14 10:40 | NUR ---
patient prepared for surgery report given to Zoltan HUSTON
[2021-04-14] MEDS ORDERED: sevoflurane 250ml liquid IH ONE (10:41)
[2021-04-14 10:46] LABS: ANISOCYTOSIS 1+; MICROCYTOSIS 1+; PLATELET ESTIMATE INCREASED; TOTAL CELLS COUNTED 100
[2021-04-14] MEDS ORDERED: midazolam 1 mg/ML 2ml injection ONE (10:49)
[2021-04-14] MEDS ORDERED: propofol inj 20 ML IV ONE (10:59)
[2021-04-14] MEDS ORDERED: rocuronium 10mg/ml inj IV ONE (10:59)
[2021-04-14] MEDS ORDERED: fentaNYL /PF 50mcg/ml 5ml ampule ONE (10:59)
[2021-04-14] MEDS ORDERED: LIDOcaine 2% (20mg/ml) 5ml vial ONE (11:00)
[2021-04-14] MEDS ORDERED: dexamethasone sod phosphate 4mg/ml inj. ONE (11:00)
[2021-04-14] MEDS ORDERED: ondansetron/PF 4mg/2ml inj ONE (11:00)
[2021-04-14] MEDS ORDERED: BUPIVACAINE liposomal/PF 13.3 MG/ML vial IM ONE (11:11)
[2021-04-14] MEDS ORDERED: BUPIVAcaine/PF 2.5mg/ml (0.25%) 10ml vial ONE (11:11)
[2021-04-14] MEDS ORDERED: glycopyrrolate 0.2mg/ml inj ONE (11:43)
[2021-04-14] MEDS ORDERED: neostigmine methylsulfate 1 MG/ML 10ml vial ONE (11:43)
--- NOTE | 2021-04-14 11:48 | NUR ---
Received from OR via , accompanied by Anesthesiologist DR ESCUDERO and report given by Anesthesiolgist. AWAKENS TO VOICE. VITALS STABLE. DRESSING DI. DRAIN TO LCS. NICOLE PAIN. ABD SOFT. SIDDIQUI WITH CLOUDY DOC URINE.
--- NOTE | 2021-04-14 12:38 | NUR ---
Report called to receiving nurse. Transferred via BED Belongings . Special Issues communicated to receiving nurse.AWAKE AND ORIENTED. VITALS STABLE. DRESSING DI. STATES PAIN IMPROVING. TO SURGICAL RM 345B AT THIS TIME.
--- NOTE | 2021-04-14 12:39 | NUR ---
Patient in room [facility]YCE 345. I have received report from Zoltan HUSTON and had the opportunity to ask questions and assume patient care.patient A&O x4 states pain is 2/10. edna drain to ALBARO draining serosang drainage. Dressing to abdomen CDI. VSS. will continue to monitor
--- NOTE | 2021-04-14 13:40 | NUR ---
PT MORE AWAKE VSS NO DISTRESS, DENIES PAIN, SPINAL L1, PT MEETS CRITERIA TO DC TO ROOM REPORT CALLED. Addendum: 04/14/21 at 1341 by Alicia Guzman RN Amended: Links added.
--- NOTE | 2021-04-14 14:00 | NUR ---
Received report from Zoltan patient returned to floor. Dressing to abdomen CDI. Anthony drain to right upper abdomen draining sero sang drainage. patient given dilaudid x1 for pain. Can have reg diet but given full lqds to start. report given to prudence. VSS
--- NOTE | 2021-04-14 17:00 | NUR ---
Dr Teixeira called to state that patient can eat egular diet. also for dr Mullen to check culture drawn 04/12. page sent out to Dr Mullen with regards this.
--- NOTE | 2021-04-14 19:03 | NUR ---
Patient in room ROYCE 345. I have received report from CHAUNCEY HUSTON and had the opportunity to ask questions and assume patient care.
[2021-04-14 19:09] LABS: CLARITY,URINE CLEAR (Clear); COLOR,URINE YELLOW (Yellow); GLUCOSE, URINE NEGATIVE (Neg); KETONES,URINE 15 mg/dl (Neg); LEUKOCYTE ESTERASE ,URINE NEGATIVE (Neg); NITRITES, URINE NEGATIVE (Neg); OCCULT BLOOD,URINE SMALL (Neg); PH,URINE 6.5 (4.8-8.0); PROTEIN,URINE 30 mg/dl (Neg)
[2021-04-14 19:29] LABS: UA COLLECTION TYPE INDWELLING CATH
[2021-04-14 19:31] LABS: BACTERIA,URINE FEW /HPF (Neg); MUCUS STRANDS FEW /LPF (Neg); RBC,URINE 0-2 /HPF (0-2); SQUAMOUS EPITHELIAL CELL,UR FEW /LPF (FEW); WBC,URINE NONE SEEN /HPF (0-4)
[2021-04-15] VITALS: BP 140/89
[2021-04-15] MEDS: piperacillin/tazo 4.5gm/100ml 100 ML IV SCH ×3 (00:34→16:31)
[2021-04-15 04:00] VITALS: BP 118/83
[2021-04-15] MEDS: HYDROmorphone inj. 0.5 MG/0.5 ML DISP.SYRIN IV PRN ×3 (04:44→19:38)
--- NOTE | 2021-04-15 06:16 | NUR ---
Patient in room ROYCE 345. I have received report from ROBEL Nguyễn and had the opportunity to ask questions and assume patient care.
--- NOTE | 2021-04-15 06:19 | NUR ---
Problems reprioritized. Patient report given, questions answered & plan of care reviewed with DEO HUSTON.
[2021-04-15 06:31] LABS: BASOPHILS % (AUTO) 0.1 % (0-1); EOSINOPHILS % (AUTO) 0 % (0-6); HEMATOCRIT 36.5 % (42.0-52.0); HEMOGLOBIN 11.9 g/dl (14.0-17.9); LYMPHOCYTES # (AUTO) 1.2 X10'3 (1.1-4.8); LYMPHOCYTES % (AUTO) 5.5 % (21-51); MEAN CORPUSCULAR HEMOGLOBIN 28.4 PG (27.0-31.0); MEAN CORPUSCULAR HGB CONC 32.7 g/dL (33.0-36.5); MEAN CORPUSCULAR VOLUME 86.9 FL (78-98); MEAN PLATELET VOLUME 7.1 FL (7.4-10.4); MONOCYTES # (AUTO) 1.4 X10'3 (0-0.9); MONOCYTES % (AUTO) 6.5 % (2-12); NEUTROPHILS # (AUTO) 19.6 X10'3 (1.8-7.7); NEUTROPHILS % (AUTO) 87.9 % (42-75); PLATELET COUNT 469 X10'3 (140-440); RED BLOOD COUNT 4.21 X10'6 (4.70-6.10); RED CELL DISTRIBUTION WIDTH 14.8 % (11.5-14.5); WHITE BLOOD COUNT 22.3 X10'3 (4.5-11.0)
[2021-04-15 07:00] VITALS: BP 127/83
[2021-04-15] MEDS: docusate sod 100mg capsule PO SCH ×2 (07:13→19:36)
[2021-04-15] MEDS: salt irrigation nasal spray 45 ML SPRAY NS SCH (07:13)
[2021-04-15] MEDS: lactobacillus rhamnosus 10,000 MMU CELLS/CAPSULE PO SCH ×2 (07:13→19:36)
[2021-04-15] MEDS: fluticasone nasal spray 16GM bottle NS SCH (07:14)
[2021-04-15] MEDS: K and/or MAG REPLACEMENT MC SCH ×2 (08:00→20:00)
--- NOTE | 2021-04-15 11:11 | NUR ---
Dr. Cochran in to see patient and flushed Blakes drain with 35ml with saline flush and changed patient suction from low continuous to low intermittent suction.
[2021-04-15 13:00] VITALS: BP 128/90
[2021-04-15 19:22] VITALS: BP 130/84
[2021-04-15 23:41] VITALS: BP 120/82
[2021-04-16] MEDS: piperacillin/tazo 4.5gm/100ml 100 ML IV SCH ×3 (00:03→17:30)
[2021-04-16] MEDS: HYDROmorphone inj. 0.5 MG/0.5 ML DISP.SYRIN IV PRN ×3 (00:51→20:16)
--- NOTE | 2021-04-16 06:32 | NUR ---
Problems reprioritized. Patient report given, questions answered & plan of care reviewed with Nadine Kerr.
[2021-04-16 06:45] LABS: BASOPHILS % (AUTO) 0.2 % (0-1); EOSINOPHILS % (AUTO) 0.2 % (0-6); HEMATOCRIT 37.1 % (42.0-52.0); HEMOGLOBIN 11.9 g/dl (14.0-17.9); LYMPHOCYTES # (AUTO) 1.2 X10'3 (1.1-4.8); LYMPHOCYTES % (AUTO) 7.5 % (21-51); MEAN CORPUSCULAR HEMOGLOBIN 28.3 PG (27.0-31.0); MEAN CORPUSCULAR HGB CONC 32.2 g/dL (33.0-36.5); MEAN CORPUSCULAR VOLUME 87.9 FL (78-98); MEAN PLATELET VOLUME 7.1 FL (7.4-10.4); MONOCYTES # (AUTO) 1.4 X10'3 (0-0.9); MONOCYTES % (AUTO) 9.2 % (2-12); NEUTROPHILS # (AUTO) 12.9 X10'3 (1.8-7.7); NEUTROPHILS % (AUTO) 82.9 % (42-75); PLATELET COUNT 508 X10'3 (140-440); RED BLOOD COUNT 4.21 X10'6 (4.70-6.10); WHITE BLOOD COUNT 15.5 X10'3 (4.5-11.0)
--- NOTE | 2021-04-16 06:51 | NUR ---
Patient in room ROYCE 345B. I have received report from ROBEL ALONZO and had the opportunity to ask questions and assume patient care.
[2021-04-16 08:00] VITALS: BP 125/88
[2021-04-16] MEDS: K and/or MAG REPLACEMENT MC SCH ×2 (08:00→20:00)
[2021-04-16] MEDS: fluticasone nasal spray 16GM bottle NS SCH (08:48)
[2021-04-16] MEDS: salt irrigation nasal spray 45 ML SPRAY NS SCH (08:48)
[2021-04-16] MEDS: lactobacillus rhamnosus 10,000 MMU CELLS/CAPSULE PO SCH ×2 (08:49→20:17)
[2021-04-16] MEDS: docusate sod 100mg capsule PO SCH ×2 (08:49→20:17)
[2021-04-16] MEDS: HYDROcodone/acetaminophen 5mg/325mg tablet PO PRN (08:50)
[2021-04-16 11:00] VITALS: BP 119/85
--- NOTE | 2021-04-16 18:14 | NUR ---
Problems reprioritized. Patient report given, questions answered & plan of care reviewed with ROBEL HANSEN.
--- NOTE | 2021-04-16 18:30 | NUR ---
Patient in room ROYCE 345. I have received report from SONAL and had the opportunity to ask questions and assume patient care.
[2021-04-16 19:00] VITALS: BP 138/88
[2021-04-16 23:00] VITALS: BP 127/85
[2021-04-17] MEDS: piperacillin/tazo 4.5gm/100ml 100 ML IV SCH ×2 (00:03→07:48)
[2021-04-17] MEDS: HYDROmorphone inj. 0.5 MG/0.5 ML DISP.SYRIN IV PRN ×2 (00:05→05:03)
--- NOTE | 2021-04-17 06:32 | NUR ---
Patient in room ROYCE 345. I have received report from VICKEY HUSTON and had the opportunity to ask questions and assume patient care.
[2021-04-17 06:49] LABS: BASOPHILS % (AUTO) 0.3 % (0-1); EOSINOPHILS # (AUTO) 0.1 X10'3 (0-0.9); EOSINOPHILS % (AUTO) 1.1 % (0-6); HEMATOCRIT 36.6 % (42.0-52.0); HEMOGLOBIN 11.8 g/dl (14.0-17.9); LYMPHOCYTES # (AUTO) 1.1 X10'3 (1.1-4.8); LYMPHOCYTES % (AUTO) 8.8 % (21-51); MEAN CORPUSCULAR HEMOGLOBIN 27.8 PG (27.0-31.0); MEAN CORPUSCULAR HGB CONC 32.4 g/dL (33.0-36.5); MEAN PLATELET VOLUME 6.6 FL (7.4-10.4); MONOCYTES # (AUTO) 1.1 X10'3 (0-0.9); MONOCYTES % (AUTO) 8.3 % (2-12); NEUTROPHILS # (AUTO) 10.4 X10'3 (1.8-7.7); NEUTROPHILS % (AUTO) 81.5 % (42-75); PLATELET COUNT 490 X10'3 (140-440); RED BLOOD COUNT 4.26 X10'6 (4.70-6.10); RED CELL DISTRIBUTION WIDTH 14.7 % (11.5-14.5); WHITE BLOOD COUNT 12.7 X10'3 (4.5-11.0)
--- NOTE | 2021-04-17 06:58 | NUR ---
Problems reprioritized. Patient report given, questions answered & plan of care reviewed with
[2021-04-17 07:00] VITALS: BP 131/84
[2021-04-17] MEDS: lactobacillus rhamnosus 10,000 MMU CELLS/CAPSULE PO SCH (07:48)
[2021-04-17] MEDS: fluticasone nasal spray 16GM bottle NS SCH (07:48)
[2021-04-17] MEDS: docusate sod 100mg capsule PO SCH (07:48)
[2021-04-17] MEDS: salt irrigation nasal spray 45 ML SPRAY NS SCH (07:49)
[2021-04-17] MEDS: famotidine 20mg tablet PO PRN (07:56)
[2021-04-17] MEDS: K and/or MAG REPLACEMENT MC SCH (08:00)
[2021-04-17] MEDS ORDERED: HYDR-3972 PO (10:41)
[2021-04-17] MEDS ORDERED: AMOX-580 PO (10:41)
[2021-04-17 11:00] VITALS: BP 136/95
--- NOTE | 2021-04-17 15:25 | NUR ---
Reassessment: Pt s/p drainage of pancreatic abscess 04/14. Since the procedure pt has had mostly 0% intake of Full Liquid diet. Pt may benefit from ONS at this time d/t decreased appetite. No N/V/D noted, LBM 04/16. Will continue to monitor PO trends. Recs: 1. Advance to Regular diet as tolerated 2. Ensure Enlive TID to provide 1050kcals and 60g protein if consumed 100% 3. Bowel care per rx 4. Scaled weight this admit; weekly scaled weights thereafter Addendum: 04/17/21 at [address] Amended: Links added.
--- NOTE | 2021-04-17 17:59 | NUR ---
patient pleasant but with flat affect. seen by Dr Mi. and dr teixeira called. Ok for patient to be discharged . heel caser margie informed staff that may not be able to get home health nurse immediately, Dr Teixeira aware. patient is to come to office on for wound change. Patients claribel drain connected to hemovac drainage bag by [facility] ICU charge nurse. suction holding. Dressing to abdomen changed. CDI on DC. All DC instructions given to patient. lengthy conversation also had with patients spouse with regards plan of care. patients appeared upset on the phone much time spent reassuring patients .and for her to talk with since Dr teixeira had explained plan of care with patient. Patient discharged home in stable condition with supplies to home with via private car. prescription for [place] and ABX escript to patients pharmacy.
[2021-04-17] MEDS ORDERED: lactose-reduced food (Ensure Enlive) - 237ml bottle PO SCH (18:00)
== END 2021-04-17 15:55 | disposition home or self-care (01) | DRG 856 ==
LOC: ER 10:31 → UNDOADMIN 18:20 → ED HOLD 18:20 → SUR 3N 04-03 08:26
PROVIDERS: ADMIT Family Medicine; ATTEND Family Medicine
PROC: B32T1ZZ Computerized Tomography (CT Scan) of Left Pulmonary Artery using Low Osmolar Contrast (ICD-10-PCS; 2021-04-02)
PROC: B3201ZZ Computerized Tomography (CT Scan) of Thoracic Aorta using Low Osmolar Contrast (ICD-10-PCS; 2021-04-02)
PROC: B32S1ZZ Computerized Tomography (CT Scan) of Right Pulmonary Artery using Low Osmolar Contrast (ICD-10-PCS; 2021-04-02)
PROC: BW211ZZ Computerized Tomography (CT Scan) of Abdomen and Pelvis using Low Osmolar Contrast (ICD-10-PCS; 2021-04-02)
PROC: 0W9G30Z Drainage of Peritoneal Cavity with Drainage Device, Percutaneous Approach (ICD-10-PCS; 2021-04-03)
PROC: BW211ZZ Computerized Tomography (CT Scan) of Abdomen and Pelvis using Low Osmolar Contrast (ICD-10-PCS; 2021-04-08)
PROC: 0W9F30Z Drainage of Abdominal Wall with Drainage Device, Percutaneous Approach (ICD-10-PCS; 2021-04-09)
PROC: 3E03317 Introduction of Other Thrombolytic into Peripheral Vein, Percutaneous Approach (ICD-10-PCS; 2021-04-09)
PROC: 3E0T3BZ Introduction of Anesthetic Agent into Peripheral Nerves and Plexi, Percutaneous Approach (ICD-10-PCS; 2021-04-12)
PROC: 3E0T33Z Introduction of Anti-inflammatory into Peripheral Nerves and Plexi, Percutaneous Approach (ICD-10-PCS; 2021-04-12)
PROC: 0FBG0ZZ Excision of Pancreas, Open Approach (ICD-10-PCS; principal; 2021-04-12 10:02)
PROC: 0F9G00Z Drainage of Pancreas with Drainage Device, Open Approach (ICD-10-PCS; 2021-04-14)
DX: T81.43XA Infection following a procedure, organ and space surgical site, initial encounter (principal); K68.19 Other retroperitoneal abscess; E43 Unspecified severe protein-calorie malnutrition; K85.90 Acute pancreatitis without necrosis or infection, unspecified; K86.1 Other chronic pancreatitis; E87.1 Hypo-osmolality and hyponatremia; K86.3 Pseudocyst of pancreas; F17.220 Nicotine dependence, chewing tobacco, uncomplicated; B96.20 Unspecified Escherichia coli [E. coli] as the cause of diseases classified elsewhere; Z20.822 Contact with and (suspected) exposure to COVID-19; Y83.6 Removal of other organ (partial) (total) as the cause of abnormal reaction of the patient, or of later complication, without mention of misadventure at the time of the procedure; Y92.89 Other specified places as the place of occurrence of the external cause; Z83.3 Family history of diabetes mellitus; Z68.23 Body mass index [BMI] 23.0-23.9, adult
CPT/HCPCS: 32561; 49406; 96374; 96375; 99285; Z7506; Z7508; 36415; 70450; 71045; 71275; 74177; 80048; 80053; 81001; 82948; 83605; 83735; 84145; 85007; 85025; 85610; 85730; 87040; 87070; 87075; 87077; 87081; 87102; 87186; 87635; 93005; 99152; 99153; A4618; A6253; A6266; A6446; A6449; A7000; C1758; C9290; C9803; G0378; J1100; J1170; J1650; J2001; J2175; J2250; J2270; J2370; J2405; J2543; J2704; J2710; J2997; J3010; J3370; J3490; J7030; J7120; P9045; Q9963; Q9967

== ENCOUNTER 2024-03-15 11:57 | Emergency (ER) | payer BC ==
[~2024-03-15] VITALS: Ht 180.3 cm; Wt 83.3 kg
[~2024-03-15 11:57] MED LIST changes: +AMOX-580 PO; +HYDR-3972 PO; -NO HOME MEDS
[2024-03-15 13:48] VITALS: BP 122/78; PULSE 68; RESP 18; TEMP 98.1; O2SAT 98
== END 2024-03-15 13:51 | disposition home or self-care (01) ==
LOC: ER 11:57
DX: S52.501A Unspecified fracture of the lower end of right radius, initial encounter for closed fracture (principal); Z79.2 Long term (current) use of antibiotics; Z79.1 Long term (current) use of non-steroidal anti-inflammatories (NSAID); Z90.49 Acquired absence of other specified parts of digestive tract; W19.XXXA Unspecified fall, initial encounter; Y93.89 Activity, other specified; Y92.89 Other specified places as the place of occurrence of the external cause; Y99.8 Other external cause status
CPT/HCPCS: 29125; 73110; 99283; A4565; A6446; A6449